=== PATIENT | male | born 1945 | race Caucasian/White ===

== ENCOUNTER → 2020-12-08 11:17 | Outpatient (BNVA) | payer MEDICARE, SELFPAY | PROVIDERS: Family Provider Family Medicine; PCP Family Medicine; Visit Provider Specialist | DX: F31.9 Bipolar disorder, unspecified (principal) | CPT/HCPCS: 99213; 99215 ==

== ENCOUNTER → 2021-06-06 12:57 | Outpatient (BNVA) | payer MEDICARE, SELFPAY | PROVIDERS: Family Provider Family Medicine; PCP Family Medicine; Visit Provider Specialist | DX: F31.9 Bipolar disorder, unspecified (principal) | CPT/HCPCS: 99213 ==

== ENCOUNTER → 2022-05-31 12:37 | Outpatient (BNVA) | payer MEDICARE, MEDICAID, SELFPAY | PROVIDERS: Family Provider Family Medicine; PCP Family Medicine; Visit Provider Specialist | DX: F31.9 Bipolar disorder, unspecified (principal); I25.10 Atherosclerotic heart disease of native coronary artery without angina pectoris | CPT/HCPCS: 99213 ==

== ENCOUNTER 2023-02-28 09:18 | Outpatient (CLI) | payer MEDICARE, MEDICAID, SELFPAY ==
[2023-02-28 10:09] VITALS: BMI 25.8
--- NOTE | 2023-02-28 10:11 | ECG_ITS ---
[facility] Test Date: 2023-02-28 Pat Name: Otf Yip Department: Room: Gender: Male Client Delivery Specialist: : 1945 Requested By: Ranjana Waddell Order Number: [id number] Lynne MD: Ranjana Waddell M.D. Interpretive Statements NAME OF STUDY: LEXISCAN SESTAMIBI STRESS TEST INDICATION: Coronary Artery Disease, Exertional shortness of breath PROCEDURE: At the baseline, the blood pressure was 123/64 mm Hg with a heart rate of 53 bpm. The electrocardiogram showed sinus bradycardia, normal axis with normal ST and T's. ??? The Lexiscan was infused over a period of 20 seconds. A total of 0.4 milligrams of Lexiscan was infused. The stress phase was continued for a total of 5 minutes. Heart rate at the end of the stress phase was 62 bpm with a blood pressure of 121/64 mm Hg. The EKG at the peak infusion revealed sinus rhythm with no significant ST-T wave changes. ??? Sestamibi was injected 20 seconds after the Lexiscan infusion. ??? Blood pressure at the end of the recovery phase was 116/61 mm Hg with a heart rate of 61 beats per minute. ??? CONCLUSION: 1. Normal EKG response to LexiScan infusion. 2. No LexiScan induced chest pain or cardiac arrhythmia. 3. Normal blood pressure and heart rate response. 4. Sestamibi/sestamibi perfusion scan pending; see separate report. Electronically Signed On 03-04-2023 5:16:02 CDT by Ranjana Waddell M.D. [id number]
--- NOTE | 2023-02-28 10:11 | NMCV_ITS ---
NM vimal perf SPECT r/s* [id number] Otf Yip Age: 77 Gender: M : 1945 Exam Date: 02/28/2023 10:46 Ordering Phys: Ranjana Waddell MD ([email or web address]) Technologist: FARIHA Donaldson Exam Location: [facility] Indications: ATHEROSCLEROTIC HEART DISEASE, EXERTIONAL SHORTNESS OF BREATH STRESS TEST Please see separate stress test report in [facility] for full findings IMAGE PROTOCOL Rest/Stress 1 Lexiscan Day Radiopharmaceutical Dose (mCi) Administration Site Administered by Rest: Tc-99m 10.6 IV FARIHA Bermudez Sestamibi Stress:Tc-99m 32.4 IV FARIHA Bermudez Sestamibi Rest: 28-Feb-2023 60 Discovery 630 Stress: 28-Feb-2023 30 Discovery 630 0.4mg Lexiscan. Images obtained in supine and prone position. SPECT RESULTS Technical Quality: Excellent Raw Data Analysis: Normal Image Corrections: No attenuation or motion correction applied Summed Stress Score: 3 Summed Rest Score: 1 Summed Difference Score: 2 PERFUSION FINDINGS Small sized perfusion abnormlity of mild severity of mid to apical inferior linares on supine stress images with improved tracer uptake in prone stress images. FUNCTIONAL RESULTS (calculated via Gated SPECT) Stress Image LV EF (%): 86 Stress EDV (mL):71 TID: 0.95 Stress ESV (mL):10 FUNCTIONAL FINDINGS: The left ventricle is normal in size. Transient Ischemia Dilatation of 0.95. The left ventricular ejection fraction is normal with a value of 86%. There is hyperdynamic left ventricular wall thickening. Normal end diastolic and end systolic volumes. IMPRESSIONS 1. Small sized perfusion abnormlity of mild severity of mid to apical inferior linares with improved tracer uptake in prone stress images.This likely represents attenuation artifact. 2. Overall left ventricular systolic function is normal without regional wall motion abnormalities, LVEF=86%. 3. EKG portion of the study will be reported separately. 4. Scan indicates low risk for cardiac events. Ranjana Waddell MD (Electronically Signed) Final Date: 04 March 2023 08:36 S
[2023-02-28] MEDS: regadenoson 0.4 Mg/5 ml Syringe IVP (11:40)
[2023-02-28 11:59] VITALS: BP 117/66; PULSE 62
== END 2023-02-28 09:19 | disposition home or self-care (01) ==
PROVIDERS: PCP Family Medicine; Visit Provider Internal Medicine Cardiovascular Disease
DX: I25.10 Atherosclerotic heart disease of native coronary artery without angina pectoris (principal); R06.02 Shortness of breath
CPT/HCPCS: 36415; 78452; 93017; 96374; A9500; J2785

== ENCOUNTER → 2023-09-20 15:55 | Outpatient (BNVA) | payer MEDICARE, MEDICAID, SELFPAY | PROVIDERS: PCP Family Medicine; Visit Provider Specialist | DX: F31.78 Bipolar disorder, in full remission, most recent episode mixed (principal); I25.10 Atherosclerotic heart disease of native coronary artery without angina pectoris | CPT/HCPCS: 99213 ==

== ENCOUNTER → 2023-12-19 10:18 | Outpatient (BNVA) | payer MEDICARE, MEDICAID, SELFPAY | PROVIDERS: PCP Family Medicine; Visit Provider Nurse Practitioner Family | DX: I10 Essential (primary) hypertension (principal); I25.10 Atherosclerotic heart disease of native coronary artery without angina pectoris | CPT/HCPCS: 99214 ==

== ENCOUNTER → 2024-09-05 10:49 | Outpatient (BNVA) | payer MEDICARE, MEDICAID, SELFPAY | PROVIDERS: PCP Family Medicine; Visit Provider Specialist | DX: R29.90 Unspecified symptoms and signs involving the nervous system (principal); F31.78 Bipolar disorder, in full remission, most recent episode mixed; I25.10 Atherosclerotic heart disease of native coronary artery without angina pectoris | CPT/HCPCS: G0463 ==

== ENCOUNTER → 2024-11-06 11:42 | Outpatient (BNVA) | payer MEDICARE, MEDICAID, SELFPAY | PROVIDERS: PCP Family Medicine; Visit Provider Internal Medicine Cardiovascular Disease | DX: I25.10 Atherosclerotic heart disease of native coronary artery without angina pectoris (principal); I10 Essential (primary) hypertension; E78.5 Hyperlipidemia, unspecified; Z79.01 Long term (current) use of anticoagulants; Z79.82 Long term (current) use of aspirin; Z95.5 Presence of coronary angioplasty implant and graft | CPT/HCPCS: 99214 ==

== ENCOUNTER 2025-05-18 11:24 | Inpatient (IN) | payer MEDICARE, MEDICAID, SELFPAY ==
[2025-05-18] VITALS (8 sets, daily range): BP systolic 101–139; BP diastolic 45–68; PULSE 84–109; RESP 16–18; TEMP 36.6–37.3; O2SAT 91–97; BMI 25.1; BMI 27.1
--- NOTE | 2025-05-18 11:25 | XR_ITS ---
WS: [id number] Exam: XR chest 1V portable [id number] Date/Time of Exam: 05/18/2025 11:28 AM Reason For Exam: Weakness Comparison 12/16/2013. Lungs are clear and fully expanded. Normal cardiomediastinal silhouette. No pleural effusions. Bony structures are intact. XR/XR chest 1V portable [id number] IMPRESSION: 1. No acute cardiopulmonary finding.
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
--- NOTE | 2025-05-18 11:28 | ECG_ITS ---
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 Measurements Intervals [place] Rate: 94 P: 47 MA: 150 QRS: -5 QRSD: 85 T: 78 QT: 350 QTc: 438 Interpretive Statements SINUS RHYTHM WITH FREQUENT VENTRICULAR PREMATURE COMPLEXES LOW QRS VOLTAGE IN PRECORDIAL LEADS [QRS DEFLECTION < 1.0 mV IN CHEST LEADS] NONSPECIFIC ST & T-WAVE ABNORMALITY ABNORMAL RHYTHM ECG No previous ECG available for comparison Electronically Signed On 05-19-2025 20:03:26 BASEBALL HAND SEWER by Melanie Veronica M.D. [id number]
[2025-05-18 12:07] LABS: Hematocrit 29.1 % (37-53); Hemoglobin 9.20 g/dL (11.27-16.99); Mean Corpuscular HGB Conc 31.6 g/dL (30-55); Mean Corpuscular Hemoglobin 30.7 pg (27-33); Mean Corpuscular Volume 97.0 fl (82-101); Nucleated Red Blood Cells % 0 %; Platelet Count 397 10^3/cmm (157-399); Red Blood Count 3.00 10^6/uL (3.85-5.65); White Blood Count 27.01 10^3/uL (3.29-11.43)
--- OUTSIDE RECORDS SUMMARY | 2025-05-18 12:13 | XMS_ITS | Clinical Summary ---
Author Organization [facility] Address [address] [address] Phone Care Team Providers Care Editor Farm Journal Name Role Phone Unavailable Primary Care Provider Unavailabl e Social History Tobacco Use Types Packs/Day Years Used Date Smoking Tobacco: Never Assessed Sex and Gender Information Value Date Recorded Sex Assigned at Not on file Legal Sex Male 5:55 AM CDT Gender Identity Not on file Sexual Orientation Not on file Last Filed Vital Signs Vital Sign Reading Time Taken Comments Blood Pressure 129/74 01/18/2025 6:05 AM CDT Pulse 101 01/18/2025 6:05 AM CDT Temperature 36.8 C (98.3 F) 01/18/2025 6:05 AM CDT Respiratory Rate 19 01/18/2025 6:05 AM CDT Oxygen Saturation 95% 01/18/2025 6:06 AM CDT Inhaled Oxygen Concentration - - Weight - - Height - - Body Mass Index - - Plan of Treatment Health Maintenance Due Date Last Done Comments Creatinine Level 1945 Lipid Panel 1945 Potassium Level 1945 MMR Vaccines (1 of 1 - Standard series) 1945 DTaP,Tdap,and Td Vaccines (1 - Tdap) 12/03/1951 Varicella Vaccines (1 of 2 - 13+ 2-dose series) 1957 Depression Screening 1962 Social Drivers of Health (SDoH) 1962 Pneumococcal Vaccines: 50+ Years (1 of 1 - PCV) 1994 Zoster Vaccines (1 of 2) 1994 Complete Fall Risk Assessment 2009 Medicare Initial AWV G0438 11/16/2010 RSV Vaccines (1 - 1-dose 75+ series) 12/03/2019 COVID-19 Vaccine (1 - 2023-2 5 season) 2025 Influenza Vaccine (#1) 2025 , 04/25/2023 HIB Vaccines Aged Out No longer eligi ble based on patient's age to complete this topic HPV Vaccines Aged Out No longer eligi ble based on patient's age to complete this topic Hepatitis A Vaccines Aged Out No long er eligible based on patient's age to complete this topic Hepatitis B Vaccines Aged Out No long er eligible based on patient's age to complete this topic IPV Vaccines Aged Out No longer eligi ble based on patient's age to complete this topic Meningococcal B Vaccine Aged Out No l onger eligible based on patient's age to complete this topic Meningococcal Vaccine Aged Out No uli rodolfo eligible based on patient's age to complete this topic Rotavirus Vaccines Aged Out No longer eligible based on patient's age to complete this topic Insurance [facility] MEDICARE [facility] MEDICARE ADVANTAGE
--- OUTSIDE RECORDS SUMMARY | 2025-05-18 12:13 | XMS_ITS | Encounter Summary ---
Author Organization [facility] Address [address] [place] [address] Care Team Providers Care Sports Recruiter Name Role Phone Gino Wilson MD Primary Care Provider [phone] Encounter Details Date Type Department Care Team (Latest Contact Info) Description 09/07/1998 Outpatient Historical [facility] Sushil Hollis MD NO ADDRESS ON FILE Observation for unspecified suspected condition (Primary Dx) Social History Tobacco Use Types Packs/Day Years Used Date Smoking Tobacco: Never Assessed Sex and Gender Information Value Date Recorded Sex Assigned at Not on file 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
--- OUTSIDE RECORDS SUMMARY | 2025-05-18 12:14 | XMS_ITS | Clinical Summary ---
Author Organization [facility] Address [address] [place] [address] Care Team Providers Care Field Service Consultant Name Role Phone Gino Wilson MD Primary Care Provider [phone] Allergies No known active allergies Medications clopidogrel (PLAVIX) 75 mg Oral Tab Take 75 mg by mouth daily. Active simvastatin (ZOCOR) 20 mg Oral tablet Take 20 mg by mouth Daily LATE. Active aspirin (HARI) 81 mg Oral Tab Take by mouth. Active metoprolol tartrate (LOPRESSOR) 25 mg Oral tablet Take 25 mg by mouth daily. Active amLODIPine (NORVASC) 5 mg Oral tabletIndications:O ther and unspecified angina pectoris,Coronary atherosclerosis of unspecified type of vessel, creek or graft Take 1 Tab by mouth daily. 30 Tab 11 3 Active tadalafiL (CIALIS) 20 mg tabletIndications:E rectile dysfunction due to arterial insufficiency Take 0.5-1 Tablets (10-20 mg) by mouth 1 time daily as needed for Erectile Dysfunction. 50 Tablet 1 1 Active OLANZapine (ZyPREXA) 5 mg tablet TAKE 1 TABLET BY MOUTH DAILY AT BEDTIME 90 Tablet 3 1 Active ALPRAZolam (XANAX) 0.25 mg tabletIndications:G eneralized anxiety disorder TAKE 1 TABLET BY MOUTH TWICE DAILY NEEDED FOR ANXIETY 180 Tablet 1 1 Active Active Problems Problem Noted Date Diagnosed Date Erectile dysfunction due to arterial insufficien cy 06/12/2020 History of coronary artery stent placement 06/12 Overweight (BMI 25.0-29.9) 06/12/2020 Essential hypertension 06/04/2020 Mixed hyperlipidemia 06/04/2020 CAD (coronary artery disease) 10/17/2012 Resolved Problems Problem Noted Date Diagnosed Date Resolved Date Exertional angina 10/17/2012 06/04/2020 Social History Tobacco Use Types Packs/Day Years Used Date Smoking Tobacco: Former Cigarettes Smokeless Tobacco: Never Alcohol Use Standard Drinks/Week Comments Never 0 (1 standard drink = 0.6 oz pur e alcohol) Sex and Gender Information Value Date Recorded Sex Assigned at Not on file 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 Gender Identity Not on file Sexual Orientation Not on file Last Filed Vital Signs Vital Sign Reading Time Taken Comments Blood Pressure 132/80 12/07/2020 4:30 PM CDT Pulse 92 12/07/2020 4:30 PM CDT Temperature 37.5 C (99.5 F) 12/07/2020 4:30 PM CDT Respiratory Rate 16 12/07/2020 4:30 PM CDT Oxygen Saturation 95% 12/07/2020 4:30 PM CDT Inhaled Oxygen Concentration - - Weight 88.7 kg (195 lb 9.6 oz) 12/07/2020 4:30 P M CDT Height 177.8 cm (5' 10 ) 12/07/2020 4:30 PM CDT Body Mass Index 28.07 12/07/2020 4:30 PM CDT Plan of Treatment Health Maintenance Due Date Last Done Comments DTAP/TDAP/TD VACCINES (1 - Tdap) 12/03/1963 PNEUMOCOCCAL VACCINE 50+ YEARS (1 of 1 - PCV) 12/02/18 95 ZOSTER VACCINE (1 of 2) 1994 RSV VACCINE (60+ or ) (1 - 1-dose 75+ series) 12/03/2019 Medicare [place]vant[place] ([place]) Prev entative Visit/Annual Wellness Visit 06/18/2024 12/03/2020 INFLUENZA VACCINE (#1) 2025 06/04/2020 Colorectal Cancer Screening Discontinued FIT/FOBT Q 1 year Discontinued 06/05/2020 COLORECTAL SCREENING Discontinued FIT-DNA Q 3 years Discontinued Flex Sig/CT Colonography Q 5 years Discontinued Procedures Procedure Name Priority Date/Time Associated Diagnosis Comments OCCULT BLOOD IMMUNOASSAY, COLORECTAL SCREEN Routine 06/05/2020 12:00 PM ATTORNEY LAWYER Screening for colon cancer from Last 3 Months or Most Recently Relevant to Health Maintenance Results * OCCULT BLOOD IMMUNOASSAY, COLORECTAL SCREEN (06/05/2020 12:00 PM ATTORNEY LAWYER) OCCULT BLOOD, STOOL Negative Negative 06/12/2020 8:41 AM ATTORNEY LAWYER [facility] Stool STOOL SPECIMEN / Unknown Collection / Unknown 06/05/2020 12:00 PM ATTORNEY LAWYER 06/11/2020 1:06 PM ATTORNEY LAWYER Gino Wilson MD BODY FLUIDS AND STOOLS Final Re sult [facility] CLIA# [id number] [place] [address] from Last 3 Months or Most Recently Relevant to Health Maintenance Insurance MEDICAID [place] [employer] [facility] H[facility] Care Teams Field Service Consultant Relationship Specialty Start Date End Date Gino Wilson MD [address] [place] [id number] PCP - General Family Practice 06/04/20
--- OUTSIDE RECORDS SUMMARY | 2025-05-18 12:14 | XMS_ITS | Clinical Summary ---
Author Organization [facility] Address [address] [place] [address] Care Team Providers Care Speech Correction Consultant Name Role Phone Gal Wilson DO Primary Care Provider [phone] Allergies No known active allergies Medications OLANZapine (ZyPREXA) 5 mg tablet TAKE 1 TABLET BY MOUTH DAILY AT BEDTIME 90 Tablet 3 12/03/2020 Active ALPRAZolam (XANAX) 0.25 mg tabletIndicatio ns:Generalized anxiety disorder TAKE 1 TABLET BY MOUTH TWICE DAILY NEEDED FOR ANXIETY 180 Tablet 1 12/03/2020 Active nitroglycerin (NITROSTAT) 0.4 mg Tablet, Sublingual Place 1 Tablet (0.4 mg) under tongue every 5 minutes as needed for Chest Pain. 100 Tablet 2 12/29/2020 Active aspirin (ECOTRIN EC) 81 mg Tablet, Delayed Release (E.C.) Take by mouth. Active simvastatin (ZOCOR) 20 mg tablet Take 20 mg by mouth. Active metoprolol tartrate (LOPRESSOR) 25 mg tablet Take 50 mg by mouth daily. Active clopidogreL (PLAVIX) 75 mg Tablet Take 75 mg by mouth daily. Active amLODIPine (NORVASC) 5 mg tablet 5 mg daily. 04/08/2021 Active sildenafiL, pulm.hypertensi on, (REVATIO) 20 mg Tablet TAKE 1 TABLET BY MOUTH DAILY 90 Tablet 06/22/2022 Active tiZANidine (ZANAFLEX) 2 mg Tablet Take 1 Tablet (2 mg) by mouth every 8 hours as needed for Spasm. 15 Tablet 05/06/2023 Active Active Problems Problem Noted Date Diagnosed Date Erectile dysfunction due to arterial insufficien cy 06/12/2020 Overweight (BMI 25.0-29.9) 06/12/2020 History of coronary artery stent placement 06/12 Mixed hyperlipidemia 06/04/2020 Essential hypertension 06/04/2020 CAD (coronary artery disease) 10/17/2012 Resolved Problems Problem Noted Date Diagnosed Date Resolved Date Exertional angina 10/17/2012 06/04/2020 Encounters Date Type Department Care Team Description 03/03/2025 External Device Data [facility] ABSTRACTION Provider, Abstract 02/17/2025 External Device Data [facility] ABSTRACTION Provider, Abstract from Last 3 Months Immunizations Immunization Administration Dates Next Due (Return Path) COVID-19 VACCINE - EMERGENCY USE AUTHORIZATION, AD26,COV2S(PF) 0.5 ML IM SUSP 05/10/2021,10/28/2020 INFLUENZA VACCINE HIGH DOSE QUADRIVALENT 65 YR UP PF IM 03/05/2024,04/25/2023 Social History Tobacco Use Types Packs/Day Years Used Date Smoking Tobacco: Former Cigarettes Smokeless Tobacco: Never Tobacco Cessation:Counseling Given: No Alcohol Use Standard Drinks/Week Comments Never 0 (1 standard drink = 0.6 oz pur e alcohol) Financial Resource Strain Answer Date R ecorded How hard is it for you to pa y for the very basics like food, housing, medical care, and heating? Not very hard 07/04/2021 Food Insecurity Answer Date Recorded In the past 12 months, have you worried that your food would run out before you had money to buy more? Never true 07/04/2021 In the past 12 months, did y ou run out of food and didn't have money to buy more? Never true 07/04/2021 Transportation Needs Answer Date Record ed In the past 12 months, has l ack of transportation kept you from medical appointments or from getting medications? No 07/04/2021 Lack of Transportation (Non-Medical) Not on file 07/04/2021 Sex and Gender Information Value Date Recorded Sex Assigned at Not on file Legal Sex Male 12:22 AM REGISTERED RADIATION THERAPIST Gender Identity Not on file Sexual Orientation Not on file Last Filed Vital Signs Vital Sign Reading Time Taken Comments Blood Pressure 104/62 07/04/2021 10:04 AM REGISTERED RADIATION THERAPIST Pulse 69 07/04/2021 10:04 AM REGISTERED RADIATION THERAPIST Temperature 37.1 C (98.7 F) 07/04/2021 10:04 AM REGISTERED RADIATION THERAPIST Respiratory Rate 16 07/04/2021 10:04 AM REGISTERED RADIATION THERAPIST Oxygen Saturation 97% 07/04/2021 10:04 AM REGISTERED RADIATION THERAPIST Inhaled Oxygen Concentration - - Weight 87.7 kg (193 lb 6.4 oz) 07/04/2021 10:04 AM REGISTERED RADIATION THERAPIST Height 177.8 cm (5' 10 ) 07/04/2021 10:04 AM REGISTERED RADIATION THERAPIST Body Mass Index 27.75 07/04/2021 10:04 AM REGISTERED RADIATION THERAPIST Plan of Treatment Health Maintenance Due Date Last Done Comments DTAP/TDAP/TD VACCINES (1 - Tdap) 12/03/1963 PNEUMOCOCCAL VACCINE 50+ YEA RS (1 of 1 - PCV) 1994 ZOSTER VACCINE (1 of 2) 1994 RSV VACCINE (60+ or ) (1 - 1-dose 75+ series) 12/03/2019 Medicare Advantage ([place]) Preventative Visit/Annual Wellness Visit 06/18/2024 07/04/2021, 12/03/2020 INFLUENZA VACCINE (#1) 2025 , 04/25/2023, 06/04/2020 COVID-19 Vaccine (6 - 2024-2 6 season) 2025 03/05/2024, 02/14/2023, 05/18/2022, Additional history exists Colorectal Cancer Screening Discontinued FIT/FOBT Q 1 year Discontinued 06/05/2020 COLORECTAL SCREENING Discontinued FIT-DNA Q 3 years Discontinued Flex Sig/CT Colonography Q 5 years Discontinued Procedures Procedure Name Priority Date/Time Associated Diagnosis Comments OCCULT BLOOD IMMUNOASSAY, COLORECTAL SCREEN Routine 06/05/2020 12:00 PM REGISTERED RADIATION THERAPIST from Last 3 Months or Most Recently Relevant to Health Maintenance Results * OCCULT BLOOD IMMUNOASSAY, COLORECTAL SCREEN (06/05/2020 12:00 PM REGISTERED RADIATION THERAPIST) OCCULT BLOOD, STOOL Negative Negative 06/12/2020 8:41 AM REGISTERED RADIATION THERAPIST [facility] Stool STOOL SPECIMEN / Unknown Collection / Unknown 06/05/2020 12:00 PM REGISTERED RADIATION THERAPIST 06/11/2020 1:06 PM REGISTERED RADIATION THERAPIST us Gino Wilson MD BODY FLUIDS AND STOOLS Final Re sult [facility]# [id number] [place] [address] from Last 3 Months or Most Recently Relevant to Health Maintenance Insurance ANTH D[employer] ADVANTAGE HMO DSNP MEDICAID [place] Care Teams Speech Correction Consultant Relationship Specialty Start Date End Date Gal Wilson DO [address] [place] [address] PCP - General Family Practice 05/25/21
[2025-05-18 12:34] LABS: Troponin(5th) Baseline 28 ng/L (0-15)
[2025-05-18 12:38] LABS: Lactic Sepsis W/Reflex 6.7 mmol/L (0.5-2.2)
[2025-05-18 12:45] LABS: Respiratory Syncytial Virus Ce NEGATIVE (Negative); SARS-CoV-2 PCR NEGATIVE (Negative)
[2025-05-18 12:58] LABS: Alanine Aminotransferase 21 U/L (0-41); Albumin Level 3.7 g/dL (3.5-5.2); Alkaline Phosphatase 76 U/L (40-130); Anion Gap 21.3 (5-19); Aspartate Amino Transferase 24 U/L (0-40); Blood Urea Nitrogen 49 mg/dL (8-23); Calcium 8.6 mg/dL (8.5-10.5); Carbon Dioxide 19 mmol/L (22-29); Chloride 107 mmol/L (98-107); Globulin 2.0 g/dL (1.3-4.6); Glucose 112 mg/dL (65-115); Osmolality Calculated 310 mOsm/kg (285-295); Potassium 4.3 mmol/L (3.5-5.1); Sodium 143 mmol/L (136-145); Total Protein 5.7 g/dL (6.6-8.7)
[2025-05-18] MEDS: linezolid premix 600 MG/300 ML PREMIX 300 MG IV ×2 (13:07→23:43)
[2025-05-18 13:22] LABS: Glucose Urine UA Negative (Normal); Nitrate Urine Negative (Negative); Specific Gravity, Urine 1.022 (1.005-1.030)
[2025-05-18 13:27] LABS: Universal Test for UA Present (0)
[2025-05-18 13:44] LABS: UA Slide Review UA Slide Review Perf
[2025-05-18 13:50] LABS: Reflex Lactate Order REFLEX LACTIC ORDERD
--- NOTE | 2025-05-18 14:27 | CT_ITS ---
WS: [id number] CT CHEST, ABDOMEN, AND PELVIS TECHNIQUE: Noncontrast CT of the chest, abdomen, and pelvis with coronal and sagittal reformatted images. CLINICAL INFORMATION: sepsis. COMPARISON: None. DLP: 1097.[address] scans at [facility] use at least one of these dose optimization techniques: automated exposure control; mA and/or kV adjustment per patient size (includes targeted exams where dose is matched to clinical indication); or iterative reconstruction. CT CHEST: Lungs are well aerated. No acute pulmonary infiltrates. Slight subsegmental atelectasis in the lung bases. Mild thoracic curve. Mild thoracic kyphosis. Aortic calcification. Normal caliber thoracic aorta. Coronary calcification. Moderate esophageal hiatal hernia. No mediastinal or hilar lymphadenopathy. No axillary lymphadenopathy. CT ABDOMEN AND PELVIS: Noncontrast liver and spleen are normal in appearance. Normal noncontrast gallbladder. Moderate esophageal hernia. Noncontrast pancreas appears normal. Adrenal glands are normal. No hydronephrosis. RIGHT renal cyst measures 4.8 x 5.9 cm. LEFT dorsal bladder diverticulum measuring 2.8 x 2.2 cm Rectosigmoid constipation. Sigmoid diverticulosis. Mild thickening of the sigmoid colon with slight surrounding induration suspicious for mild acute diverticulitis. No drainable abscess or fluid collection. CT/[place] [id number] IMPRESSION: 1. No acute chest findings. 2. Slight thickening and induration about the sigmoid colon compatible with mi ld acute diverticulitis. No drainable abscess or fluid collection. 3. LEFT dorsal bladder diverticula measuring 2.2 x 2.8 cm 4. No other acute findings in the abdomen or pelvis.
[2025-05-18 14:31] LABS: Troponin 5 2HR 28.47 ng/L (0-15); Troponin 5 2HR Delta 0.47 ABS# (0-10)
[2025-05-18] MEDS: pantoprazole 40 mg SDV 80 MG IVP (15:17)
[2025-05-18] MEDS: ondansetron 2 mg/ML SDV 2 mL 4 MG IVP (15:18)
--- NOTE | 2025-05-18 15:42 | P.HP_ITS ---
Documented by User: Lynne Mitchell NP 05/18/25 18:44 Providers/Chief Complaint 2 Admitting Physician: Tiffanie Young MD Primary Care Provider: Gal Wilson DO Chief Complaint: weakness History of Present Illness Otf Yip is a 79 year old male w/ pmhx CAD (s/p multiple stent placement to LAD and circumflex 12/2013), on chronic anticoagulation- plavix, HTN, hyperlipidemia, and Bipolar disorder. Patient presents emergency department via EMS w/ c/o increased weakness. Patient resting in bed on room air, denies pain. He presented to the ED today due to increased weakness with associated s/s SOB, acid reflux-like symptoms, dark stool, dark emesis. Patient states, Well I ate a lot of chocolate and I think that is why the stool looked dark. Patient denies nausea, fever, palpitations, changes in urinary and bowel habits and any recent medication changes. Patient reports that he takes 5-6 ibuprofen every night before bed. Patient will be admitted to hospitalist services with general surgery consult for possible EGD for further medical management. While in the ED a CBC, CMP, troponins, lactic acid, CRP was collected, reviewed and resulted as follows: WBC 27.01, Neut 23.36, [place] 1.3, Hgb 9.20, HCT 29.1, RBC 3.00. Na 143, K 4.3, Licensed Home Inspector 1.3, BUN 49, Anion Gap 21.3. Baseline troponin 28, 2-hour troponin 28.47, delta troponin 0.47. Lactic acid 6.7, CRP 6.5. UA was obtained-negative for UTI. Flu/RSV/COVID swab collected-negative. Patient received following medications while in ED: 2.5 NS bolus, meropenem 500 mg IVP, Zyvox 600 mg IV, Protonix 80 mg IVP, Zofran 4 mg Review of Systems 2 General: Reports: 10 or more systems reviewed and unremarkable except in HPI and below Medications/Allergies Home Medications ?Medication ?Instructions ?Recorded ?Confirmed ?Last Taken ?Type aspirin 81 mg tablet,delayed 81 mg PO DAILY 11/23/22 1 07/19/24 05/17/25 History release (Adult Low Dose Aspirin) coenzyme Q10 100 mg capsule (Co 100 mg PO DAILY 05/18/25 Unknown History Q-10) alprazolam 0.25 mg tablet 0.5 mg (2 x 0.25 mg) PO SPARKLE Y 90 04/03/24 05/18/25 Unknown Rx days #180 tabs amlodipine 5 mg tablet See Rx Instructions .Route 0 12/29/24 05/18/25 05/17/25 Rx .COMPLEX #100 tabs clopidogrel 75 mg tablet 75 mg PO DAILY #90 tabs 12/1605/18/25 05/17/25 Rx metoprolol tartrate 25 mg tablet 25 mg PO BID #200 tab s 12/29/24 05/18/25 05/17/25 08:00 Rx simvastatin 20 mg tablet 20 mg PO DAILY #90 tabs 12/1605/18/25 05/17/25 09:00 Rx mljbtvit-sm-umawx 300 mcg-K 60 1 tab PO DAILY 05/18/25 05/18/25 05/17/25 History mcg-lycop 600 mcg-lutein 300 mcg tablet (Centrum Silver Men) Allergies Allergy/AdvReac Type Severity Reaction Status Date / Time No Known Allergies Allergy Verified 11/06/24 13:36 PFSH Acute 2 PFSH: Medical History Coronary artery disease HTN (hypertension) Hyperlipidemia Surgical History Hx of hernia repair History of coronary artery stent placement 2010 Family History Family/Other Cancer Aunt Denies family history of Diabetes CAD (coronary artery disease) Stroke Social History Smoking and tobacco/nicotine status: never used tobacco/nicotine Alcohol intake: never Substance/Drug Use: never Vitals/I&O/Wt Last Vital Signs Temp 97.9 F 05/18/25 11:31 Pulse 97 05/18/25 12:45 Resp 16 05/18/25 12:45 BP 139/68 05/18/25 12:45 Pulse Ox 94 05/18/25 12:45 O2 Del Method Room Air 05/18/25 12:45 05/18/25 05/18/25 05/18/25 06:59 14:59 22:59 Intake Total 2300 / 2300 Balance 2300 / 2300 Weight last 48 hrs Weight 81.647 kg Physical Exam 2 Narrative: General: A&Ox4 , lying supine on RA, denies pain. HEENT: Normo-cephalic, atraumatic, grossly unremarkable exam Cardio: NSR, normal S1-S2 w/o any murmurs, rubs, or gallops and JVD normal Respiratory: Clear breath sounds on auscultation w/o any wheezes, stridor, rhonchi GI: Abd soft, non-tender, non-distended, normo-active bowel sounds present. Neuro: Moves all extremities, no sensory deficits, Normal speech Behavior: Appropriate and cooperative Extremities: Adequate palpable pulses. No clubbing, cyanosis or edema, Full ROM Quick SOFA Score: Respiratory Rate: 18 Blood Pressure: 128/54 Sandra Coma Scale: 15 qSOFA Score: 0 If qSOFA score 2 or greater, continue: Blood Pressure Mean: 78 Bilirubin (mg/dl): 0.2 Platelets (x10?/ml): 397 Creatinine (mg/dl): 1.3 Evaluation: Current stage of sepsis: sepsis Sepsis stage criteria used: [facility] Sep-1 and Sepsis-3 Blood cultures ordered: Yes Focused Exam: Vital signs: Temp Pulse Resp BP Pulse Ox O2 Del Method 05/18/25 16:41 96 16 115/45 92 05/18/25 16:09 17 108/46 93 05/18/25 15:48 103 H 18 121/57 91 Room Air 05/18/25 12:45 97 16 139/68 94 Room Air 05/18/25 11:31 97.9 F 98 18 101/53 97 Room Air Capillary refill: < 3 Seconds Peripheral pulse strength: 3+ Normal P eripheral pulse location: Radial Skin exam: pallor not present and no mottling Date exam was performed: 05/18/25 Time exam was performed: 18:37 2 Sepsis Screen No Definite Risk 05/18/25, 16:09 Respiratory Rate, (12 - 18) 17 breaths/min Today, 08:20 Blood Pressure 125/61 mmHg Today, 08:20 [place] Coma Scale Score 15 Today, 07:58 Quick SOFA Score 0 12/01/25, 18:35 SOFA Score: 2 Sandra Coma Scale Score 15 Today, 07:58 Blood Pressure Mean 82 mmHg Today, 08:20 Total Bilirubin, (0.15-1.2) 0.2 mg/dL 05/18/25, 13 :54 Platelet Count, (157-399) 222 10^3/cmm Δ Today, 05:36 Creatinine, (0.7-1.2) 1.0 mg/dL Today, 05:36 Data 05/19/25 05:36 05/19/25 05:36 Other Labs: 05/18: Chest/Abd/Pelvis CT: Reviewed and results as follows: No acute chest findings. Slight thickening and induration about the sigmoid colon compatible with mild acute diverticulitis. No drainable abscess or fluid collection. LEFT dorsal bladder diverticula measuring 2.2 x 2.8 cm. No other acute findings in the abdomen or pelvis. 05/18: CXR: Reviewed and results as follows: No acute cardiopulmonary finding. 05/18: EKG: NSR, no st changes. QRS 85, QTc 438. HR 94 Micro: Microbiology 05/18/25 11:55 Blood Culture - Preliminary Blood SPECIMEN COLLECTED 05/18/25 11:50 Blood Culture - Preliminary Blood SPECIMEN COLLECTED A&P Assessment and plan 1. Diverticulitis: 2. GI bleed: 3. Sepsis: 4. Anemia: 5. Leukocytosis: 6. Prerenal acute renal failure: 7. Dehydration: 8. Hyperlipidemia: 9. HTN (hypertension): 10. Bipolar disorder: Plan: Sepsis/Diverticulitis Sepsis resolved/improving secondary to mild acute sigmoid diverticulitis. ?05/18: Chest/Abd/Pelvis CT: Reviewed and results as follows: Slight thickening and induration about the sigmoid colon compatible with mild acute diverticulitis . No drainable abscess or fluid collection. LEFT dorsal bladder diverticula measuring 2.2 x 2.8 cm. ? Continue IV abx meropenem 1gm IV q8hr ? IVF LR at 100ml/hr ? Trend lactate q6h until normalized; CBC, CMP dly ? Blood cultures collected, pending. ? NPO or clear liquids, advance diet as tolerated once improved. ? Analgesics and antiemetics ordered as needed Suspected upper GI Bleed/Anemia, normocytic Reports of dark stool 5 days ago and recent episode of dark emesis ? Hgb: 9.20 , Hct: 29.01 , Plt: 397 ? PT, APTT, INR ordered, pending. ? Ca: 8.6 , K: 4.3, Mag ordered, pending. ? Dr. Richardson consulted from possible EGD r/o actute GI bleed. ? NPO, strict I/Os, monitor for hemodynamic stability (orthostatics) ? Fall precautions, early ambulation w/ assist. ? Continuous cardiac monitoring ? Hold ASA/Plavix. Avoid NSAIDs ? Monitor H/H, transfuse as indicated to keep Hgb >7 or if active bleeding. ? CBC, Coags, CMP dly. Follow Lactate. Type and screen/crossmatch. Fecal occult stool ordered, pending ? IVF LR 100ml/hr ? Zofran 4 mg IVP Q6h PRN ? Protonix IVP 40 mg BID DOLLY(pre-renal)/dehydration Likely secondary to suspected GI bleed, elevated BUN; no overt bleeding noted yet. ? Continue IVF as per above ? Avoid nephrotoxins ? CMP daily CAD, s/p LAD &circumflex stents (2013) Hyperlipidemia ? Hold Plavix/ASA as per above, monitor GI bleed. ? Continue home medication simvastatin 20 mg PO dly, hold if LFTs abnormal. HTN ?Continue home medication metoprolol 25 mg PO BID ?Continue home medication amlodipine 5 mg PO Bipolar disorder ?Continue home medication alprazolam 0.25mg PO dly, and Olanzapine 5 mg PO CODE STATUS: Full code GI prophylaxis: Protonix IVP 40mg BID VTE prophylaxis: SCDs PDMP PDMP Reviewed: Not Reviewed Attestations 2 Medical Necessity Statement*: Admit to impatient as patient will need greater than 2 midnight stay for IV antibiotics, fluid resuscitation, and monitoring for possible GI bleed and sepsis resolution. Coding Level of Care Code 21569 Diagnoses Prerenal acute renal failure N17.9 Dehydration E86.0 Diverticulitis K57.92 Hyperlipidemia E78.5 HTN (hypertension) I10 Leukocytosis D72.829 Anemia D64.9 Bipolar disorder F31.9 Sepsis A41.9 GI bleed K92.2 Time Spent (min) 70 Documented by User: RONIT Malik CHARGE POSTER 05/19/25 09:14 Providers/Chief Complaint 2 Chief Complaint: weakness Medications/Allergies Home Medications ?Medication ?Instructions ?Recorded ?Confirmed ?Last Taken ?Type aspirin 81 mg tablet,delayed 81 mg PO DAILY 11/23/22 1 07/19/24 05/17/25 History release (Adult Low Dose Aspirin) coenzyme Q10 100 mg capsule (Co 100 mg PO DAILY 05/18/25 Unknown History Q-10) alprazolam 0.25 mg tablet 0.5 mg (2 x 0.25 mg) PO SPARKLE Y 90 04/03/24 05/18/25 Unknown Rx days #180 tabs amlodipine 5 mg tablet See Rx Instructions .Route 0 12/29/24 05/18/25 05/17/25 Rx .COMPLEX #100 tabs clopidogrel 75 mg tablet 75 mg PO DAILY #90 tabs 12/1605/18/25 05/17/25 Rx metoprolol tartrate 25 mg tablet 25 mg PO BID #200 tab s 12/29/24 05/18/25 05/17/25 08:00 Rx simvastatin 20 mg tablet 20 mg PO DAILY #90 tabs 12/1605/18/25 05/17/25 09:00 Rx dslizsoo-mq-hurgy 300 mcg-K 60 1 tab PO DAILY 05/18/25 05/18/25 05/17/25 History mcg-lycop 600 mcg-lutein 300 mcg tablet (Centrum Silver Men) Allergies Allergy/AdvReac Type Severity Reaction Status Date / Time No Known Allergies Allergy Verified 11/06/24 13:36 PFSH Acute 2 PFSH: Medical History Coronary artery disease HTN (hypertension) Hyperlipidemia Surgical History Hx of hernia repair History of coronary artery stent placement 2010 Family History Family/Other Cancer Aunt Denies family history of Diabetes CAD (coronary artery disease) Stroke Social History Smoking and tobacco/nicotine status: never used tobacco/nicotine Alcohol intake: never Substance/Drug Use: never Physical Exam 2 Quick SOFA Score: Respiratory Rate: 17 Blood Pressure: 125/61 [place] Coma Scale: 15 qSOFA Score: 0 If qSOFA score 2 or greater, continue: Blood Pressure Mean: 82 Bilirubin (mg/dl): 0.2 Platelets (x10?/ml): 222 Creatinine (mg/dl): 1.0 Evaluation: Sepsis stage criteria used: [facility] Sep-1 and Sepsis-3 Focused Exam: Date exam was performed: 05/19/25 Time exam was performed: 0 9:13 2 Sepsis Screen No Definite Risk 05/18/25, 16:09 Respiratory Rate, (12 - 18) 17 breaths/min Today, 08:20 Blood Pressure 125/61 mmHg Today, 08:20 [place] Coma Scale Score 15 Today, 07:58 Quick SOFA Score 0 05/18/25, 18:35 SOFA Score: 2 [place] Coma Scale Score 15 Today, 07:58 Blood Pressure Mean 82 mmHg Today, 08:20 Total Bilirubin, (0.15-1.2) 0.2 mg/dL 05/18/25, 13 :54 Platelet Count, (157-399) 222 10^3/cmm Δ Today, 05:36 Creatinine, (0.7-1.2) 1.0 mg/dL Today, 05:36 Data 05/19/25 05:36 05/19/25 05:36 A&P Assessment and plan 1. Diverticulitis: 2. GI bleed: 3. Sepsis: 4. Anemia: 5. Leukocytosis: 6. Prerenal acute renal failure: 7. Dehydration: 8. Hyperlipidemia: 9. HTN (hypertension): 10. Bipolar disorder: PDMP PDMP Reviewed: Not Reviewed Diagnoses Prerenal acute renal failure N17.9 Dehydration E86.0 Diverticulitis K57.92 Hyperlipidemia E78.5 HTN (hypertension) I10 Leukocytosis D72.829 Anemia D64.9 Bipolar disorder F31.9 Sepsis A41.9 GI bleed K92.2 Time Spent (min) 70
[2025-05-18 15:56] LABS: Lactic Acid level (Lactate) 4.1 mmol/L (0.5-2.2)
[2025-05-18] MEDS: lactobacillus 1 Tablet 1 TAB PO (17:13)
--- NOTE | 2025-05-18 17:26 | ECG_ITS ---
[facility] Test Date: 2025-05-18 Pat Name: Otf Yip Department: Room: 264 Gender: Male Audio Visual Collections Coordinator: : 1945 Requested By: Elsa Botello Order Number: [id number] Lynne MD: Melanie Veronica M.D. Measurements Intervals [place] Rate: 93 P: 29 OR: 171 QRS: -22 QRSD: 77 T: 70 QT: 360 QTc: 448 Interpretive Statements SINUS RHYTHM BORDERLINE LEFT AXIS DEVIATION [QRS AXIS < -20] POSSIBLE RIGHT VENTRICULAR CONDUCTION DELAY [RSR (QR) IN V1/V2] NONSPECIFIC T-WAVE ABNORMALITY Compared to ECG 05/18/2025 11:28:33 Ventricular premature complex(es) no longer present T-wave abnormality still present Electronically Signed On 05-19-2025 20:53:51 SENIOR ELECTRONICS DESIGN ENGINEER by Melanie Veronica M.D. [email or web address]
[2025-05-18 17:31] LABS: Alanine Aminotransferase 18 U/L (0-41); Albumin Level 3.2 g/dL (3.5-5.2); Alkaline Phosphatase 63 U/L (40-130); Aspartate Amino Transferase 23 U/L (0-40); Globulin 1.9 g/dL (1.3-4.6); Total Protein 5.1 g/dL (6.6-8.7)
[2025-05-18 17:32] LABS: Magnesium 2.0 mg/dL (1.7-2.3)
[2025-05-18 18:07] LABS: Estmated Average Glucose 97; Hemoglobin A1C 5.0 % (4.0-6.0)
[2025-05-18 18:17] LABS: Troponin 5 6HR 29.96 ng/L (0-15); Troponin 5 6HR Delta 1.96 ng/L (0-12)
[2025-05-18 18:33] LABS: Lactic Sepsis W/Reflex 1.7 mmol/L (0.5-2.2)
[2025-05-18] MEDS: meropenem 1,000 mg SDV 1000 MG IVP (21:16)
[2025-05-19] VITALS (20 sets, daily range): BP systolic 100–135; BP diastolic 45–76; PULSE 71–85; RESP 15–94; TEMP 36.6–37.7; O2SAT 92–99; BMI 28.5
[2025-05-19] MEDS: sennosides-docusate Tablet 2 TAB PO ×2 (04:20→16:07)
[2025-05-19] MEDS: lactobacillus 1 Tablet 1 TAB PO ×2 (04:20→16:07)
[2025-05-19 05:47] LABS: Mean Corpuscular HGB Conc 30.3 g/dL (30-55); Mean Corpuscular Hemoglobin 30.5 pg (27-33); Mean Corpuscular Volume 100.5 fl (82-101); Nucleated Red Blood Cells % 0 %; Platelet Count 222 10^3/cmm (157-399); Red Blood Count 2.00 10^6/uL (3.85-5.65); White Blood Count 13.55 10^3/uL (3.29-11.43)
[2025-05-19 05:55] LABS: Hematocrit 20.1 % (37-53); Hemoglobin 6.10 g/dL (11.27-16.99)
[2025-05-19 06:08] LABS: Anion Gap 14.9 (5-19); Blood Urea Nitrogen 29 mg/dL (8-23); Calcium 7.2 mg/dL (8.5-10.5); Carbon Dioxide 20 mmol/L (22-29); Chloride 112 mmol/L (98-107); Glucose 105 mg/dL (65-115); Lactic Sepsis W/Reflex 0.9 mmol/L (0.5-2.2); Osmolality Calculated 302 mOsm/kg (285-295); Potassium 3.9 mmol/L (3.5-5.1); Sodium 143 mmol/L (136-145)
[2025-05-19] MEDS: meropenem 1,000 mg SDV 1000 MG IVP (07:49)
--- NOTE | 2025-05-19 09:07 | PC.CHAP ---
Pastoral Care Encounter/Spiritual Assessment Type of Contact [] Declined differential tester visit [] Patient/Family/Request visit [] Outpatient visit [] Follow-up visit [] Physician referral [] Code/Alert [x] Routine visit [] Staff referral [] Actively dying [] Patient sleeping [] Family support [] [] Out of room [] Palliative care [] [] Receiving care in room [] Pre-surgical visit [] Trauma [] Long length of stay [] ICU visit [] Other: Relational/Emotional Strength [x] Patient feels connected with others/family/visitors/staff [] Distress [] Loneliness/isolation [] Abandonment Spirituality of Patient [x] Person of Angeli [] Attends Orthodox of their Angeli [x] Believes in Prayer [] Reads Bible or Tenriism materials [] There are Spiritual issues to be addressed Commercial Instructor Supervisor Interventions [x] Prayer [x] Active listening [] Non-anxious presence [x] Spiritual/emotional support [] Crisis/trauma care [] Spiritual counseling [] Bereavement support [] Provided bereavement packet [] Provided Bible/devotional materials [] Provided toy/stuffed animal, coloring book to patient or family member [] Provided Communion [] Anointing/[place] [] Salvation [x] Completed spiritual assessment [] Other: Impact on Illness or Injury [] Angry [] Fearful [] Anxious [] Often cries [] Exhaustion [] Unable to work [] Unable to attend sabianist [] Unable to walk/stand [] Unable to read [] Unable to drive [] Unable to eat/drink [] Unable to sleep [] Unable to be with family [] Patient intubated [] Other: Summary Time spent with patient 5 min
[2025-05-19] MEDS: linezolid premix 600 MG/300 ML PREMIX 300 MG IV (11:38)
[2025-05-19 11:49] LABS: Hematocrit 22.1 % (37-53); Hemoglobin 7.00 g/dL (11.27-16.99); Mean Corpuscular HGB Conc 31.7 g/dL (30-55); Mean Corpuscular Hemoglobin 30.0 pg (27-33); Mean Corpuscular Volume 94.8 fl (82-101); Nucleated Red Blood Cells % 0 %; Platelet Count 218 10^3/cmm (157-399); Red Blood Count 2.33 10^6/uL (3.85-5.65); White Blood Count 15.44 10^3/uL (3.29-11.43)
--- NOTE | 2025-05-19 14:37 | P.CONIM_ITS ---
Providers/Reason For Consult 2 Consulting Physician/Specialty*: General Surgery Reason for Consult*: Suspected GI bleeding Attending Physician: Alek Sow MD Primary Care Provider: Gal Wilson DO History of Present Illness History of Present Illness Otf Yip is a 79 year old male who presents to the hospital with weakness and was noted to have anemia and a CT scan shows mild diverticulitis, he also has seen some tarry stool. I was consulted for suspected upper GI bleed. Patient has been doing okay tolerating diet no significant abdominal pain. He does take antiplatelet therapy at home. Review of Systems 2 General: Reports: 10 or more systems reviewed and unremarkable except in HPI and below Medications/Allergies Home Medications ?Medication ?Instructions ?Recorded ?Confirmed ?Last Taken ?Type aspirin 81 mg tablet,delayed 81 mg PO DAILY 11/23/22 1 07/19/24 05/17/25 History release (Adult Low Dose Aspirin) coenzyme Q10 100 mg capsule (Co 100 mg PO DAILY 05/18/25 Unknown History Q-10) alprazolam 0.25 mg tablet 0.5 mg (2 x 0.25 mg) PO SPARKLE Y 90 04/03/24 05/18/25 Unknown Rx days #180 tabs amlodipine 5 mg tablet See Rx Instructions .Route 0 12/29/24 05/18/25 05/17/25 Rx .COMPLEX #100 tabs clopidogrel 75 mg tablet 75 mg PO DAILY #90 tabs 12/1605/18/25 05/17/25 Rx metoprolol tartrate 25 mg tablet 25 mg PO BID #200 tab s 12/29/24 05/18/25 05/17/25 08:00 Rx simvastatin 20 mg tablet 20 mg PO DAILY #90 tabs 12/1605/18/25 05/17/25 09:00 Rx [id number] 300 mcg-K 60 1 tab PO DAILY 05/18/25 05/18/25 05/17/25 History mcg-lycop 600 mcg-lutein 300 mcg tablet (Centrum Silver Men) Allergies Allergy/AdvReac Type Severity Reaction Status Date / Time No Known Allergies Allergy Verified 11/06/24 13:36 Current Medications Generic Name Dose Route Start Last Admin Trade Name Freq PRN Reason Stop Dose Admin Alprazolam 0.5 mg 05/18/25 21:00 05/18/25 21:16 Alprazolam 0.25 Mg Tablet PO 0.5 mg BEDTIME JAMAAL Administration Amlodipine Besylate 5 mg 05/19/25 05:00 05/19/25 04:20 Amlodipine 5 Mg Tablet PO 5 mg DAILY JAMAAL Administration Lactated Ringer's 1,000 mls @ 100 mls/hr 05/18/25 17:00 05/19/25 12:44 Lactated Ringers IV Infused .Q10H JAMAAL Infusion Lactobacillus Acidophilus 1 tab 05/18/25 17:00 05/19/25 04:20 Lactobacillus 1 Tablet PO 1 tab BID JAMAAL Administration Metoprolol Tartrate 25 mg 05/18/25 17:15 05/19/25 04:21 Metoprolol Tartrate 25 Mg Tablet PO 25 mg On Hold: 05/19/25 12:46 BID JAMAAL Administration Polyethylene Glycol 17 gm 05/19/25 05:00 05/19/25 04:26 Polyethylene Glycol 3350 Pkt 17 Gm PO Not Given DAILY JAMAAL Senna/Docusate Sodium 2 tab 05/19/25 05:00 05/19/25 04:20 Sennosides-Docusate Tablet PO 2 tab BID JAMAAL Administration PFSH Acute 2 PFSH: Medical History Coronary artery disease HTN (hypertension) Hyperlipidemia Surgical History Hx of hernia repair History of coronary artery stent placement 2010 Family History Family/Other Cancer Aunt Denies family history of Diabetes CAD (coronary artery disease) Stroke Social History Smoking and tobacco/nicotine status: never used tobacco/nicotine Alcohol intake: never Substance/Drug Use: never Vitals/I&O/Wt Last Vital Signs Temp 98 F 05/19/25 11:42 Pulse 75 05/19/25 11:42 Resp 16 05/19/25 11:42 BP 109/62 05/19/25 11:42 Pulse Ox 93 05/19/25 11:42 O2 Del Method Room Air 05/19/25 04:00 05/18/25 05/19/25 05/19/25 22:59 06:59 14:59 Intake Total 500 / 2800 1246.667 / 4046.667 2950 / 2950 Output Total 350 / 350 300 / 650 Balance 150 / 2450 946.667 / 3396.667 2950 / 2950 Weight last 48 hrs Weight 205 lb Weight 195 lb Weight 180 lb Physical Exam 2 Narrative: Abdomen is soft nontender nondistended. Data 05/19/25 11:27 05/19/25 05:36 Micro: Microbiology 05/18/25 11:55 Blood Culture - Preliminary Blood NEGATIVE TO DATE 05/18/25 11:50 Blood Culture - Preliminary Blood NEGATIVE TO DATE A&P Assessment and plan 1. GI bleed: Plan: After complete history physical examination and review of all available clinical data I have decided to offer the patient an upper endoscopy for evaluation for possible upper GI bleeding. I discussed all risk benefits of the upper endoscopy including the risk of perforation, risk of needing additional interventions, risk of injuring the soft tissue of the mouth and pharynx and patient agrees. In the case of a negative upper endoscopy patient should do a colonoscopy in the outpatient setting, his last colonoscopy about 5 years ago and was negative for pathology. Otherwise all other management per primary team is appreciated. I agree with continuing pantoprazole twice a day in the immediate future and then he may be able to reduce it to once a day. Upper endoscopy booked for tomorrow patient will be kept n.p.o. after midnight. PDMP PDMP Reviewed: Not Reviewed Coding Level of Care Code Acute Code for Chg Fwd Diagnoses GI bleed K92.2
[2025-05-19] MEDS: pantoprazole 40 mg SDV IVP (14:43)
[2025-05-19] MEDS: metroNIDAZOLE IV 500 MG/100 ML PREMIX 100 MG IV ×2 (14:46→21:50)
--- NOTE | 2025-05-19 15:50 | P.PN_ITS ---
Subjective 2 Subjective: Patient was seen in the morning, currently feeling better. His weakness is getting better PRBC transfusion completed and post PRBC CBC was 7 Another unit requested Surgery consulted and for upper endoscopy tomorrow likely, to keep patient n.p.o., Vitals/I&O/Wt Last Vital Signs Temp 98.9 F 05/19/25 15:04 Pulse 76 05/19/25 15:04 Resp 16 05/19/25 15:04 BP 121/53 05/19/25 15:04 Pulse Ox 96 05/19/25 15:04 O2 Del Method Room Air 05/19/25 04:00 05/19/25 05/19/25 05/19/25 06:59 14:59 22:59 Intake Total 1246.667 / 4046.667 2950 / 2950 0 / 2950 Output Total 300 / 650 Balance 946.667 / 3396.667 2950 / 2950 0 / 2950 Weight last 48 hrs Weight 92.986 kg Weight 88.451 kg Weight 81.647 kg Physical Exam 2 Narrative: General: Alert and oriented, lying comfortably without any distress, pallor positive HEENT: Normocephalic, atraumatic, grossly unremarkable exam Cardio: normal rate rhythm, normal S1-S2 without any murmurs, rubs, or gallops and JVD normal Respiratory: normal vascular breathing on auscultation without any wheezes, stridor, rhonchi GI: Abdomen soft, nontender, nondistended, normoactive bowel sounds present all 4 quadrants, Neuro: intact cranial nerves motor and sensory and cerebellar/coordination function without any focal neurological deficit Behavior: Appropriate and cooperative Extremities: Adequate palpable pulses, mild trace edema, pallor positive Data 05/19/25 11:27 05/19/25 05:36 Micro: Microbiology 05/18/25 11:55 Blood Culture - Preliminary Blood NEGATIVE TO DATE 05/18/25 11:50 Blood Culture - Preliminary Blood NEGATIVE TO DATE A&P Assessment and plan 1. Gastrointestinal hemorrhage associated with intestinal diverticulitis: Patient having features of diverticulitis on CT CT scan of the abdomen and pelvis Patient initially started on linezolid and meropenem by the admitting ENVIRONMENTAL SERVICES SUPERVISOR, switched to metronidazole and ciprofloxacin since the patient does not exhibit any stephany signs and symptoms of septic shock,. Patient having marked leukocytosis that could be explained secondary to dehydration versus severe anemia and stress Surgery consulted For upper endoscopy likely tomorrow, keep the patient n.p.o. CBC every 8 hourly and if the patient has ongoing severe bleeding consider CT angio abdomen/pelvis with involvement of surgery Hold anticoagulation or any blood thinners, of note patient is on aspirin and Plavix and to hold it Hold beta-nadeem and any antihypertensive since the patient is having GI bleed and may affect blood pressure. SCDs Maintain 2 IV bore cannulas PPI IV twice daily Keep hemoglobin above 7 g/dL Adequate hydration with Ringer lactate to continue Maintain MAP over 65 2. Anemia due to other cause, not classified: Anemia workup sent Rest of the plan as mentioned above 3. Sepsis: Patient having possible source of abdomen diverticulitis leading to leukocytosis that could also be related to stress versus anemia. 2 sets of blood cultures prelim negative Sent for urine cultures Lactate series improving Maintain 2 IV bore cannulas Broad-spectrum antibiotics coverage with metronidazole and ciprofloxacin IV fluid bolus and response to monitor Maintain MAP above 65 4. Diverticulitis: Ciprofloxacin and metronidazole Continue monitor for any bleeding per rectum or melena Keep hemoglobin above 7 Surgery on board and to follow the recommendation 5. Prerenal acute renal failure: Resolved after adequate hydration 6. Dehydration: Continue adequate hydration 7. Hyperlipidemia, unspecified hyperlipidemia type: Patient on 20 mg of simvastatin at home, to continue as inpatient 8. Essential hypertension: Hold any antihypertensive medication in the light of GI bleed in order to avoid any future hypotensive episodes 9. Bipolar disorder, in full remission, most recent episode mixed: Currently stable and continue to monitor Continue home medication alprazolam Plan: CODE STATUS: Full code GI prophylaxis: Protonix IVP 40mg BID VTE prophylaxis: SCDs PDMP PDMP Reviewed: Not Reviewed Attestations 2 Medical Necessity Statement*: Patient will stay more than 2 midnights for the management of diverticulitis with significant concerning anemia. And arrangement by the case packer and sealer for safe postdischarge arrangement Time Spent in Patient Care: 16 - 35 minutes (>than 50% of time sp ent in counselling and/or direct pt care on unit) . Other Attestations: Patient condition has been discussed at length with the patient/family, I have independently reviewed the chart labs imaging/diagnostics/EKG. the goals of care and code status with the patient/family/NOK/legal hostess party sales representative, and documented accordingly. The management has been done according to the current clinical condition with respect to patient goals of care and based on recommendations/guidelines. The patient/family has been informed about the current condition and further plan of care. Agreed with the plan of care and understood without any language barrier. Every effort was made to ensure accuracy of bag sewer. Any obvious errors or omissions should be clarified with the author of the document. Coding Level of Care Code 97242 Diagnoses Gastrointestinal hemorrhage associated with intestinal diverticulitis K57.93 GI bleed type/associated pathology: diverticulitis Anemia due to other cause, not classified D64.89 Anemia type: other cause Other causes of anemia: other cause, not classified Sepsis A41.9 Sepsis type: sepsis due to unspecified organism Severe sepsis acute organ dysfunction type: acute renal failure Acute renal failure type: unspecified Severe sepsis shock status: without septic shock Diverticulitis K57.92 Prerenal acute renal failure N17.9 Dehydration E86.0 Hyperlipidemia, unspecified hyperlipidemia type E78.5 Hyperlipidemia type: unspecified Essential hypertension I10 Hypertension type: essential hypertension Bipolar disorder, in full remission, most recent episode mixed F31.78 Active/Remission status: in full remission Most recent bipolar episode type: mixed
[2025-05-19 18:02] LABS: Ferritin 34 ng/mL (30-400); Iron 41 ug/dL (59-158); Total Iron Binding Capacity 319 mcg/dl; Unsaturated Iron Binding 278 ug/dL (112-347); Vitamin B12 294 pg/mL (232-1245)
[2025-05-19 21:01] LABS: Hematocrit 24.5 % (37-53); Hemoglobin 7.80 g/dL (11.27-16.99); Mean Corpuscular HGB Conc 31.8 g/dL (30-55); Mean Corpuscular Hemoglobin 30.4 pg (27-33); Mean Corpuscular Volume 95.3 fl (82-101); Nucleated Red Blood Cells % 0.3 %; Platelet Count 196 10^3/cmm (157-399); Red Blood Count 2.57 10^6/uL (3.85-5.65); White Blood Count 13.56 10^3/uL (3.29-11.43)
[2025-05-20] VITALS (10 sets, daily range): BP systolic 106–128; BP diastolic 50–76; PULSE 66–82; RESP 16–18; TEMP 36.5–36.8; O2SAT 90–100
[2025-05-20 00:23] LABS: Hematocrit 23.9 % (37-53); Hemoglobin 8.00 g/dL (11.27-16.99); Mean Corpuscular HGB Conc 33.5 g/dL (30-55); Mean Corpuscular Hemoglobin 30.5 pg (27-33); Mean Corpuscular Volume 91.2 fl (82-101); Nucleated Red Blood Cells % 0.2 %; Platelet Count 196 10^3/cmm (157-399); Red Blood Count 2.62 10^6/uL (3.85-5.65); White Blood Count 12.26 10^3/uL (3.29-11.43)
[2025-05-20] MEDS: sennosides-docusate Tablet 2 TAB PO ×2 (04:42→16:11)
[2025-05-20] MEDS: ATORVASTATIN 20 MG TABLET PO (04:42)
[2025-05-20] MEDS: metroNIDAZOLE IV 500 MG/100 ML PREMIX 100 MG IV ×3 (04:42→21:14)
[2025-05-20] MEDS: lactobacillus 1 Tablet 1 TAB PO ×2 (04:42→16:11)
--- NOTE | 2025-05-20 05:47 | P.HPUD_ITS ---
Surgery/Procedure H&P Update DATE OF PROCEDURE: May 20, 2025 DATE H&P PERFORMED: 05/19/25 H&P UPDATE INFORMATION: I have reviewed H&P completed within last 30 days, I have examined patient prior to procedure, No changes to prior documentation, H&P is in [facility] EMR on date indicated and Risks and benefits of the procedure reviewed PLANNED PROCEDURE: Operation Date: 05/20/25 07:00 Proposed Procedures p EGD WITH POSSILE BLEEDING CONTROL(Not Applicable) - Gino Richardson MD
[2025-05-20 05:54] LABS: Anion Gap 11.5 (5-19); Blood Urea Nitrogen 17 mg/dL (8-23); Calcium 7.4 mg/dL (8.5-10.5); Carbon Dioxide 23 mmol/L (22-29); Chloride 108 mmol/L (98-107); Creatinine Clr Calc Pharmacy 86.6575; Glucose 108 mg/dL (65-115); Osmolality Calculated 290 mOsm/kg (285-295); Potassium 3.5 mmol/L (3.5-5.1); Sodium 139 mmol/L (136-145)
--- NOTE | 2025-05-20 06:54 | P.ANESASSM_ITS ---
Pre-Anesthetic Assessment Height/Weight: Height 1.8 m Weight 95.028 kg Temp Pulse Resp BP Pulse Ox O2 Del Method 98.2 F 66 18 110/76 94 Room Air 05/20/25 03:18 05/20/25 03:18 05/20/25 03:18 05/20/25 03:18 05/20/25 03:18 05/20/25 03:18 Preop Diagnosis: Anemia, hematemesis Operation Date: 05/20/25 07:00 Proposed Procedures p EGD WITH POSSILE BLEEDING CONTROL(Not Applicable) - Gino Richardson MD Familial anesthetic complications: none Was Beta Abhishek taken within 24 hours: Yes Was Clonidine taken within 24 hours: N/A Last intake: Intake Last Liquid Date 05/20/25 Last Liquid Time 00:00 Last Solid Date 05/19/25 Last Solid Time 17:00 Social No alcohol and No tobacco Exam alert, oriented x 3, clear to auscultation bilaterally (diminished tones) and regular rate & rhythm (diminished tones) Airway Cervical ROM: within normal limits Mallampati: Class III Dentition: chipped Pulmonary None reported CV/HEM Coronary Artery Disease, Hypertension and Myocardial Infarction (stent circumflex, LAD) Chronic Renal Insufficiency Hepatic None reported GI Gastroesophageal Reflux Disease Metabolic Hyperlipidemia and Morbid Obesity [facility] None reported Neuropsych Bipolar Anesthetic Plan ASA status: 3 Anesthesia: MAC Risk of > 500 ml blood loss (7ml/kg in children): No Medications/Allergies Home Medications ?Medication ?Instructions ?Recorded ?Confirmed ?Last Taken ?Type aspirin 81 mg tablet,delayed 81 mg PO DAILY 11/23/22 1 07/19/24 05/17/25 History release (Adult Low Dose Aspirin) coenzyme Q10 100 mg capsule (Co 100 mg PO DAILY 05/18/25 Unknown History Q-10) alprazolam 0.25 mg tablet 0.5 mg (2 x 0.25 mg) PO SPARKLE Y 90 04/03/24 05/18/25 Unknown Rx days #180 tabs amlodipine 5 mg tablet See Rx Instructions .Route 0 12/29/24 05/18/25 05/17/25 Rx .COMPLEX #100 tabs clopidogrel 75 mg tablet 75 mg PO DAILY #90 tabs 12/1605/18/25 05/17/25 Rx metoprolol tartrate 25 mg tablet 25 mg PO BID #200 tab s 12/29/24 05/18/25 05/17/25 08:00 Rx simvastatin 20 mg tablet 20 mg PO DAILY #90 tabs 12/1605/18/25 05/17/25 09:00 Rx [id number] 300 mcg-K 60 1 tab PO DAILY 05/18/25 05/18/25 05/17/25 History mcg-lycop 600 mcg-lutein 300 mcg tablet (Centrum Silver Men) Allergies Allergy/AdvReac Type Severity Reaction Status Date / Time No Known Allergies Allergy Verified 11/06/24 13:36 Current Medications Generic Name Dose Route Start Last Admin Trade Name Freq PRN Reason Stop Dose Admin Alprazolam 0.5 mg 05/18/25 21:00 05/19/25 21:50 Alprazolam 0.25 Mg Tablet PO 0.5 mg On Hold: 05/20/25 06:41 BEDTIME JAMAAL Administration Comment: Order held by Process Transfer Amlodipine Besylate 5 mg 05/19/25 05:00 05/19/25 04:20 Amlodipine 5 Mg Tablet PO 5 mg DAILY JAMAAL Administration Atorvastatin Calcium 20 mg 05/20/25 05:00 05/20/25 04:42 Atorvastatin 20 Mg Tablet PO 20 mg On Hold: 05/20/25 06:41 DAILY JAMAAL Administration Comment: Order held by Process Transfer Lactated Ringer's 1,000 mls @ 100 mls/hr 05/18/25 17:00 05/19/25 21:51 Lactated Ringers IV 100 mls/hr On Hold: 05/20/25 06:41 .Q10H JAMAAL Administration Comment: Order held by Process Transfer Metronidazole 500 mg in 100 mls @ 100 mls/hr 05/19/25 13:00 05/20/25 04:42 Flagyl Iv IV 100 mls/hr On Hold: 05/20/25 06:41 Q8H JAMAAL Administration Comment: Order held by Process Protocol Transfer Ciprofloxacin/Dextrose 400 mg in 200 mls @ 200 mls/hr 05/19/25 13:00 05/20/25 01:26 Cipro IV Infused On Hold: 05/20/25 06:41 Q12H JAMAAL Infusion Comment: Order held by Process Protocol Transfer Lactobacillus Acidophilus 1 tab 05/18/25 17:00 05/20/25 04:42 Lactobacillus 1 Tablet PO 1 tab On Hold: 05/20/25 06:41 BID JAMAAL Administration Comment: Order held by Process Transfer Metoprolol Tartrate 25 mg 05/18/25 17:15 05/19/25 04:21 Metoprolol Tartrate 25 Mg Tablet PO 25 mg BID JAMAAL Administration Pantoprazole Sodium 40 mg 05/19/25 15:00 05/19/25 14:43 Pantoprazole 40 Mg Sdv IVP 40 mg On Hold: 05/20/25 06:41 Q24H JAMAAL Administration Comment: Order held by Process Transfer Polyethylene Glycol 17 gm 05/19/25 05:00 05/20/25 04:42 Polyethylene Glycol 3350 Pkt 17 Gm PO Not Given On Hold: 05/20/25 06:41 DAILY JAMAAL Comment: Order held by Process Transfer Senna/Docusate Sodium 2 tab 05/19/25 05:00 05/20/25 04:42 Sennosides-Docusate Tablet PO 2 tab On Hold: 05/20/25 06:41 BID JAMAAL Administration Comment: Order held by Process Transfer [facility] Anesthesia Medical History (Updated 05/19/25 @ 15:56 by Alek Sow MD) Coronary artery disease HTN (hypertension) Hyperlipidemia Surgical History Hx of hernia repair History of coronary artery stent placement 2011 Family History Family/Other Cancer Aunt Denies family history of Diabetes CAD (coronary artery disease) Stroke Social History Smoking and tobacco/nicotine status: never used tobacco/nicotine Alcohol intake: never Substance/Drug Use: never Data Anesthesia 05/20/25 00:05 05/20/25 05:05 Short CBC 05/18/25 05/19/25 05/19/25 Range/Units 11:55 05:36 11:27 WBC 27.01 H 13.55 H 15.44 H (3.29-11.43) 10^3/uL Hgb 9.20 L 6.10 L* D 7.00 L (11.27-16.99) g/dL Hct 29.1 L 20.1 L* D 22.1 L (37-53) % MCV 97.0 100.5 94.8 D (82-101) fl Plt Count 397 222 D 218 (157-399) 10^3/cmm Neut % (Auto) 86.5 76.8 77.3 % Neut # (Auto) 23.36 H 10.41 H 11.94 H (1.8-7.7) 10^3/uL 05/19/25 05/20/25 Range/Units 20:47 00:05 WBC 13.56 H 12.26 H (3.29-11.43) 10^3/uL Hgb 7.80 L 8.00 L (11.27-16.99) g/dL Hct 24.5 L 23.9 L (37-53) % MCV 95.3 91.2 (82-101) fl Plt Count 196 196 (157-399) 10^3/cmm Neut % (Auto) 71.8 70.4 % Neut # (Auto) 9.72 H 8.64 H (1.8-7.7) 10^3/uL BMP 05/18/25 05/19/25 05/20/25 11:55 05:36 05:05 Sodium 143 143 139 Potassium 4.3 3.9 3.5 Chloride 107 112 H 108 H Carbon Dioxide 19 L 20 L 23 BUN 49 H 29 H 17 Creatinine 1.3 H 1.0 0.7 Glucose 112 105 108 Calcium 8.6 7.2 L 7.4 L Cardiac Enzymes 05/18/25 05/18/25 05/18/25 Range/Units 11:55 13:54 17:37 Troponin T Baseline 28 H (0-15) ng/L Troponin T 120 Minute 28.47 H (0-15) ng/L Delta Troponin T 0.47 (0-10) ABS# Troponin T Hi Sens 6Hr 29.96 H (0-15) ng/L Troponin T Hi Sens 6Hr Delta 1.96 (0-12) ng/L Liver Function 05/18/25 05/18/25 Range/Units 11:55 13:54 Total Bilirubin 0.3 0.2 (0.15-1.2) mg/dL Direct Bilirubin 0.09 (0.00-0.30) mg/dL AST 24 23 (0-40) U/L ALT 21 18 (0-41) U/L Alkaline Phosphatase 76 63 (40-130) U/L Albumin 3.7 3.2 L (3.5-5.2) g/dL Urine 05/18/25 Range/Units 13:12 Urine Color Yellow (Yellow) Urine Appearance Clear (CLEAR) Urine pH 6.5 (5-7) Ur Specific [place] 1.022 (1.005-1.030) Urine Protein Negative (Negative) Urine Glucose (UA) Negative (Normal) Urine Ketones Trace (Negative) Urine Nitrate Negative (Negative) Urine Bilirubin Negative (Negative) Ur Leukocyte Esterase Trace A (Negative) Urine RBC 0-2 (0-2) /hpf Urine WBC 0-5 (0-5) /hpf Blood Bank 05/19/25 06:31 Blood Type O Positive Rho(D) Type Rh positive Antibody Screen Negative COVID Results 05/18/25 11:55 SARS-CoV-2 (PCR) Negative Coags 05/18/25 11:55 C-Reactive Protein 6.5 H Microbiology 05/18/25 11:55 Blood Culture - Preliminary Blood NEGATIVE TO DATE 05/18/25 11:50 Blood Culture - Preliminary Blood NEGATIVE TO DATE Cardiac Studies: 2 Sestamibi Stress Test (Cardiology) 02/28
--- NOTE | 2025-05-20 07:12 | P.PN_ITS ---
Subjective 2 Subjective: 79-year-old male who is admitted with we akness and suspected upper GI bleeding. Doing well overnight, hemoglobin has trended up to 8 after transfusion. Vitals/I&O/Wt Last Vital Signs Temp 98.2 F 05/20/25 03:18 Pulse 66 05/20/25 03:18 Resp 18 05/20/25 03:18 BP 110/76 05/20/25 03:18 Pulse Ox 94 05/20/25 03:18 O2 Del Method Room Air 05/20/25 03:18 05/19/25 05/20/25 05/20/25 22:59 06:59 14:59 Intake Total 2075 / 5025 300 / 5325 Output Total 650 / 650 Balance 2075 / 5025 -350 / 4675 Weight last 48 hrs Weight 209 lb 8 oz Weight 205 lb Weight 195 lb Weight 180 lb Physical Exam 2 GI: OTHER: The abdomen is soft nontender nondistended Data 05/20/25 00:05 05/20/25 05:05 Micro: Microbiology 05/18/25 11:55 Blood Culture - Preliminary Blood NEGATIVE TO DATE 05/18/25 11:50 Blood Culture - Preliminary Blood NEGATIVE TO DATE A&P Assessment and plan 1. Upper GI bleed: Plan: EGD was done today, there is mild gastritis, there is a large cratered duodenal ulcer at the level of the first portion of the duodenum, there is a stigmata of bleeding no active bleeding. Biopsies were taken. Patient should continue high-dose PPI should be initiated on Carafate 4 times a day, we should avoid NSAID as much as possible. He should repeat an endoscopy in 4 to 6 weeks to ensure recovery. PDMP PDMP Reviewed: Not Reviewed Attestations 2 Medical Necessity Statement*: Per medical team Coding Level of Care Code Acute Code for Chg Fwd Diagnoses Upper GI bleed K92.2
--- NOTE | 2025-05-20 07:35 | ANE.PACU2 ---
Inpatient post-anesthesia follow up: Airway intact: Yes Vital signs: Temperature 98 F Pulse Rate 82 Respiratory Rate 18 Blood Pressure 123/63 Pulse Oximetry 93 Oxygen Delivery Me thod Room Air Oxygen Flow Rate Fraction of Inspir ed Oxygen Hydration adequate: Yes Nausea and vomiting: No Pain level: 1 Mental status: Baseline
[2025-05-20 10:54] LABS: Lactate (Lactic Acid level) 1.6 mmol/L (0.5-2.2)
[2025-05-20] MEDS: sucralfate 1 gm/10 mL Oral Liq UDC PO ×3 (12:15→21:20)
--- NOTE | 2025-05-20 12:43 | P.PN_ITS ---
Subjective 2 Subjective: 79-year-old male who is admitted with we akness and suspected upper GI bleeding. Doing well overnight, hemoglobin has trended up to 8 after transfusion. 05/20 patient seen and examined, status p ost upper GI endoscopy. Told him about the duodenal ulceration. He is currently denying any abdominal pain nausea vomiting chest pain or any other symptoms. Vitals/I&O/Wt Last Vital Signs Temp 98 F 05/20/25 11:50 Pulse 70 05/20/25 11:50 Resp 18 05/20/25 11:50 BP 106/61 05/20/25 11:50 Pulse Ox 93 05/20/25 11:50 O2 Del Method Room Air 05/20/25 08:45 05/19/25 05/20/25 05/20/25 22:59 06:59 14:59 Intake Total 2075 / 5025 300 / 5325 2099 / 2100 Output Total 650 / 650 Balance 2075 / 5025 -350 / 4675 2099 / 2099 Weight last 48 hrs Weight 95.028 kg Weight 92.986 kg Weight 88.451 kg Physical Exam 2 Narrative: General: Alert and oriented, lying comfortably without any distress, pallor positive HEENT: Normocephalic, atraumatic, grossly unremarkable exam Cardio: normal rate rhythm, normal S1-S2 without any murmurs, rubs, or gallops and JVD normal Respiratory: normal vascular breathing on auscultation without any wheezes, stridor, rhonchi GI: Abdomen soft, nontender, nondistended, normoactive bowel sounds present all 4 quadrants, Neuro: intact cranial nerves motor and sensory and cerebellar/coordination function without any focal neurological deficit Behavior: Appropriate and cooperative Extremities: Adequate palpable pulses, mild trace edema, pallor positive Data 05/20/25 00:05 05/20/25 05:05 Micro: Microbiology 05/18/25 11:55 Blood Culture - Preliminary Blood NEGATIVE TO DATE 05/18/25 11:50 Blood Culture - Preliminary Blood NEGATIVE TO DATE A&P Assessment and plan 1. Gastrointestinal hemorrhage associated with intestinal diverticulitis: Patient having features of diverticulitis on CT CT scan of the abdomen and pelvis Patient initially started on linezolid and meropenem by the admitting APRN, switched to metronidazole and ciprofloxacin Leukocytosis improving Advance diet as tolerated Anemia and possible GI bleed. Surgery consulted S/p upper GI endoscopy EGD showed mild gastritis, there is a large cratered duodenal ulcer at the level of the first portion of the duodenum, there is a stigmata of bleeding no active bleeding. Biopsies were taken. Surgery recommending repeat endoscopy in 4 to 6 weeks Hold anticoagulation or any blood thinners, of note patient is on aspirin and Plavix and currently on hold Will discuss with surgery about resumption of the same and timing Initially beta-nadeem and antihypertensives were held secondary to GI bleed however currently blood pressure is soft, continue holding. SCDs PPI IV twice daily Sucralfate 4 times daily Hemoglobin stable, 8.0 today. 2. Anemia due to other cause, not classified: as above 3. Sepsis: Patient having possible source of abdomen diverticulitis leading to leukocytosis that could also be related to stress versus anemia. 2 sets of blood cultures prelim negative Sent for urine cultures Lactic acidosis has resolved Maintain 2 IV bore cannulas Broad-spectrum antibiotics coverage with metronidazole and ciprofloxacin IV fluid bolus and response to monitor Maintain MAP above 65 4. Diverticulitis: Ciprofloxacin and metronidazole Continue monitor for any bleeding per rectum or melena Keep hemoglobin above 7 Surgery on board and to follow the recommendation 5. Prerenal acute renal failure: Resolved after adequate hydration 6. Dehydration: Continue adequate hydration 7. Hyperlipidemia, unspecified hyperlipidemia type: Patient on 20 mg of simvastatin at home, to continue as inpatient 8. Essential hypertension: Hold any antihypertensive medication in the light of GI bleed in order to avoid any future hypotensive episodes 9. Bipolar disorder, in full remission, most recent episode mixed: Currently stable and continue to monitor Continue home medication alprazolam 10. Electrolyte abnormality: Replete hypokalemia and hypophosphatemia. Recheck tomorrow. Plan: CODE STATUS: Full code GI prophylaxis: Protonix IVP 40mg BID VTE prophylaxis: SCDs PDMP PDMP Reviewed: Not Reviewed Attestations 2 Medical Necessity Statement*: Repeating electrolytes. Will discuss with surgery about resumption of blood thinners. PT OT Coding Level of Care Code Acute Code for Chg Fwd Diagnoses Gastrointestinal hemorrhage associated with intestinal diverticulitis K57.93 GI bleed type/associated pathology: diverticulitis Anemia due to other cause, not classified D64.89 Anemia type: other cause Other causes of anemia: other cause, not classified Sepsis A41.9 Acute renal failure type: unspecified Sepsis type: sepsis due to unspecified organism Severe sepsis acute organ dysfunction type: acute renal failure Severe sepsis shock status: without septic shock Diverticulitis K57.92 Prerenal acute renal failure N17.9 Dehydration E86.0 Hyperlipidemia, unspecified hyperlipidemia type E78.5 Hyperlipidemia type: unspecified Essential hypertension I10 Hypertension type: essential hypertension Bipolar disorder, in full remission, most recent episode mixed F31.78 Active/Remission status: in full remission Most recent bipolar episode type: mixed Electrolyte abnormality E87.8
[2025-05-20] MEDS: pantoprazole 40 mg SDV IVP (16:11)
--- NOTE | 2025-05-20 16:14 | PC.NURSE ---
pt had only had 125mls urine output, pt bladder scan was approx 460, dr. fallon notified and verbal order for straight cath received. educ pt of the order and pt requsted to wait. pt then had an additional 225 urine output and 2nd bladder scan was approx 380mls.
--- NOTE | 2025-05-20 16:24 | PC.SOCIAL ---
*IMM* Patient received a copy of the Important Message from Medicare. Copy in chart initialed and dated.
[2025-05-21] VITALS (9 sets, daily range): BP systolic 128–145; BP diastolic 55–68; PULSE 76–95; RESP 16–18; TEMP 36.6–37; O2SAT 90–97
[2025-05-21] MEDS: metroNIDAZOLE IV 500 MG/100 ML PREMIX 100 MG IV ×2 (05:09→13:45)
[2025-05-21] MEDS: lactobacillus 1 Tablet 1 TAB PO ×2 (05:14→16:43)
[2025-05-21] MEDS: ATORVASTATIN 20 MG TABLET PO (05:15)
--- NOTE | 2025-05-21 05:25 | PC.NURSE ---
Pt refused scheduled sennasides and miralax per AUG this morning as well. Dr. James notified, education provided regarding importance of taking meds.
[2025-05-21 05:58] LABS: Hematocrit 25.0 % (37-53); Hemoglobin 8.10 g/dL (11.27-16.99); Mean Corpuscular HGB Conc 32.4 g/dL (30-55); Mean Corpuscular Hemoglobin 31.2 pg (27-33); Mean Corpuscular Volume 96.2 fl (82-101); Nucleated Red Blood Cells % 0 %; Platelet Count 207 10^3/cmm (157-399); Red Blood Count 2.60 10^6/uL (3.85-5.65); White Blood Count 11.35 10^3/uL (3.29-11.43)
[2025-05-21 06:16] LABS: Anion Gap 12.7 (5-19); Blood Urea Nitrogen 13 mg/dL (8-23); Calcium 7.6 mg/dL (8.5-10.5); Carbon Dioxide 22 mmol/L (22-29); Chloride 109 mmol/L (98-107); Glucose 123 mg/dL (65-115); Osmolality Calculated 291 mOsm/kg (285-295); Potassium 3.7 mmol/L (3.5-5.1); Sodium 140 mmol/L (136-145)
[2025-05-21] MEDS: sucralfate 1 gm/10 mL Oral Liq UDC PO ×4 (06:18→20:56)
[2025-05-21 11:11] LABS: C.Diff PCR (Lab) NEGATIVE (Negative)
--- NOTE | 2025-05-21 12:51 | PM.PN ---
Subjective Subjective: 79-year-old male who is admitted with weakness and suspected upper GI bleeding. Doing well overnight, hemoglobin has trended up to 8 after transfusion. 05/20 patient seen and examined, status post upper GI endoscopy. Told him about the duodenal ulceration. He is currently denying any abdominal pain nausea vomiting chest pain or any other symptoms. Vitals/I&O/Wt Last Vital Signs Temp 98.2 F 05/21/25 11:27 Pulse 76 05/21/25 11:27 Resp 18 05/21/25 11:27 BP 129/60 05/21/25 11:27 Pulse Ox 93 05/21/25 11:27 O2 Del Method Room Air 05/21/25 11:27 05/20/25 05/21/25 05/21/25 22:59 06:59 14:59 Intake Total 600 / 3000 1400 / 4400 1000 / 1000 Output Total 325 / 450 200 / 200 Balance 275 / 2550 1400 / 3950 800 / 800 Weight last 48 hrs Weight 97.239 kg Weight 95.028 kg Physical Exam Narrative: General: Alert and oriented, lying comfortably without any distress, pallor positive HEENT: Normocephalic, atraumatic, grossly unremarkable exam Cardio: normal rate rhythm, normal S1-S2 without any murmurs, rubs, or gallops and JVD normal Respiratory: normal vascular breathing on auscultation without any wheezes, stridor, rhonchi GI: Abdomen soft, nontender, nondistended, normoactive bowel sounds present all 4 quadrants, Neuro: intact cranial nerves motor and sensory and cerebellar/coordination function without any focal neurological deficit Behavior: Appropriate and cooperative Extremities: Adequate palpable pulses, mild trace edema, pallor positive Data 05/21/25 05:27 05/21/25 05:27 Micro: Microbiology 05/20/25 03:45 Urine Culture - Preliminary Urine,Clean Catch A&P Assessment and plan 1. Gastrointestinal hemorrhage associated with intestinal diverticulitis: Patient having features of diverticulitis on CT scan of the abdomen and pelvis Patient initially started on linezolid and meropenem by the admitting JINRIKISHA DRIVER, switched to metronidazole and ciprofloxacin Leukocytosis improving Advance diet as tolerated Anemia and possible GI bleed. Surgery consulted S/p upper GI endoscopy EGD showed mild gastritis, there is a large cratered duodenal ulcer at the level of the first portion of the duodenum, there is a stigmata of bleeding no active bleeding. Biopsies were taken. Surgery recommending repeat endoscopy in 4 to 6 weeks Hold anticoagulation or any blood thinners, of note patient is on aspirin and Plavix and currently on hold Will discuss with surgery about resumption of the same and timing Initially beta-nadeem and antihypertensives were held secondary to GI bleed however currently blood pressure is soft, continue holding. SCDs PPI IV twice daily Sucralfate 4 times daily Hemoglobin stable, 8.1 today. 2. Anemia due to other cause, not classified: as above 3. Sepsis: Patient having possible source of abdomen diverticulitis leading to leukocytosis that could also be related to stress versus anemia. 2 sets of blood cultures prelim negative Sent for urine cultures Lactic acidosis has resolved Maintain 2 IV bore cannulas Broad-spectrum antibiotics coverage with metronidazole and ciprofloxacin 4. Diverticulitis: Ciprofloxacin and metronidazole Continue monitor for any bleeding per rectum or melena Keep hemoglobin above 7 Surgery on board and to follow the recommendation 5. Prerenal acute renal failure: Resolved after adequate hydration 6. Dehydration: Continue adequate hydration 7. Hyperlipidemia, unspecified hyperlipidemia type: Patient on 20 mg of simvastatin at home, to continue as inpatient 8. Essential hypertension: Hold any antihypertensive medication in the light of GI bleed in order to avoid any future hypotensive episodes 9. Bipolar disorder, in full remission, most recent episode mixed: Currently stable and continue to monitor Continue home medication alprazolam 10. Electrolyte abnormality: Replete hypokalemia and hypophosphatemia. Recheck tomorrow. Plan: CODE STATUS: Full code GI prophylaxis: Protonix IVP 40mg BID VTE prophylaxis: SCDs PDMP PDMP Reviewed: Not Reviewed Attestations Medical Necessity Statement*: Restarting aspirin and Plavix, monitor blood counts. Coding Level of Care Code Acute Code for [facility] Fwd Diagnoses Gastrointestinal hemorrhage associated with intestinal diverticulitis K57.93 GI bleed type/associated pathology: diverticulitis Anemia due to other cause, not classified D64.89 Anemia type: other cause Other causes of anemia: other cause, not classified Sepsis A41.9 Acute renal failure type: unspecified Sepsis type: sepsis due to unspecified organism Severe sepsis acute organ dysfunction type: acute renal failure Severe sepsis shock status: without septic shock Diverticulitis K57.92 Prerenal acute renal failure N17.9 Dehydration E86.0 Hyperlipidemia, unspecified hyperlipidemia type E78.5 Hyperlipidemia type: unspecified Essential hypertension I10 Hypertension type: essential hypertension Bipolar disorder, in full remission, most recent episode mixed F31.78 Active/Remission status: in full remission Most recent bipolar episode type: mixed Electrolyte abnormality E87.8
[2025-05-21] MEDS: pantoprazole 40 mg SDV IVP (14:47)
[2025-05-22] VITALS (8 sets, daily range): BP systolic 108–161; BP diastolic 62–68; PULSE 77–97; RESP 16–20; TEMP 36.4–37.2; O2SAT 92–96
[2025-05-22] MEDS: lactobacillus 1 Tablet 1 TAB PO ×2 (05:02→16:46)
[2025-05-22] MEDS: ATORVASTATIN 20 MG TABLET PO (05:02)
[2025-05-22 05:36] LABS: Hematocrit 25.2 % (37-53); Hemoglobin 8.00 g/dL (11.27-16.99); Mean Corpuscular HGB Conc 31.7 g/dL (30-55); Mean Corpuscular Hemoglobin 30.2 pg (27-33); Mean Corpuscular Volume 95.1 fl (82-101); Nucleated Red Blood Cells % 0 %; Platelet Count 207 10^3/cmm (157-399); Red Blood Count 2.65 10^6/uL (3.85-5.65); White Blood Count 8.77 10^3/uL (3.29-11.43)
[2025-05-22 06:00] LABS: Anion Gap 10.4 (5-19); Blood Urea Nitrogen 9 mg/dL (8-23); Calcium 7.7 mg/dL (8.5-10.5); Carbon Dioxide 24 mmol/L (22-29); Chloride 108 mmol/L (98-107); Glucose 146 mg/dL (65-115); Osmolality Calculated 289 mOsm/kg (285-295); Potassium 3.4 mmol/L (3.5-5.1); Sodium 139 mmol/L (136-145)
[2025-05-22] MEDS: sucralfate 1 gm/10 mL Oral Liq UDC PO ×3 (06:08→16:46)
--- NOTE | 2025-05-22 11:43 | PC.SOCIAL ---
IMM Updated Updated pt on IMM. No questions voiced. Provided pt a copy. Initialed, dated, & timed copy in chart.
--- NOTE | 2025-05-22 14:09 | PM.DCS ---
Discharge Providers Date of Admission: 05/18/25 15:21 Date of Discharge: May 22, 2025 Attending Provider at Admission: Tiffanie Young MD Attending Provider at Discharge: Margy Engle MD Primary Care Provider: Gal Wilson DO Diagnoses at Discharge Discharge Diagnosis 1. Gastrointestinal hemorrhage associated with intestinal diverticulitis: 2. Anemia due to other cause, not classified: 3. Sepsis: 4. Diverticulitis: 5. Prerenal acute renal failure: 6. Dehydration: 7. Hyperlipidemia, unspecified hyperlipidemia type: 8. Essential hypertension: 9. Bipolar disorder, in full remission, most recent episode mixed: 10. Electrolyte abnormality: Reason for Visit Reason for Visit: weakness Hospital Course Hospital Course Otf Yip is a 79 year old male w/ pmhx CAD (s/p multiple stent placement to LAD and circumflex 12/2013), on chronic anticoagulation- plavix, HTN, hyperlipidemia, and Bipolar disorder. Presented to the hospital with increased weakness. Found to have GI bleeding. 1. Gastrointestinal hemorrhage associated with intestinal diverticulitis: Patient having features of diverticulitis on CT scan of the abdomen and pelvis Patient initially started on linezolid and meropenem by the admitting [employer]ET[employer] REPRESENTATIVE, switched to metronidazole and ciprofloxacin Leukocytosis improving Advance diet as tolerated--tolerating diet okay. Will be discharged on p.o. Cipro and Flagyl. Prescription provided. Anemia and possible GI bleed. Surgery consulted S/p upper GI endoscopy EGD showed mild gastritis, there is a large cratered duodenal ulcer at the level of the first portion of the duodenum, there is a stigmata of bleeding no active bleeding. Biopsies were taken. Surgery recommending repeat endoscopy in 4 to 6 weeks Initially aspirin Plavix on hold however now having resumed and vital stable. Hemoglobin stable. Initially had soft blood pressures therefore blood pressure medications were on hold however now has been resumed. At the time of discharge. On PPI twice daily and sucralfate. Prescription provided. Will need to follow-up with surgery outpatient for repeat endoscopy in 4 to 6 weeks. 2. Anemia due to other cause, not classified: as above 3. Sepsis: Secondary to diverticulitis, resolved. 4. Diverticulitis: Ciprofloxacin and metronidazole 5. Prerenal acute renal failure: Resolved after adequate hydration 6. Dehydration: Continue adequate hydration 7. Hyperlipidemia, unspecified hyperlipidemia type: Patient on 20 mg of simvastatin at home, to continue as inpatient 8. Essential hypertension: Home blood pressure medications resumed. 9. Bipolar disorder, in full remission, most recent episode mixed: Currently stable and continue to monitor Continue home medication alprazolam 10. Electrolyte abnormalities repleted Physical Exam Narrative: General: Alert and oriented, lying comfortably without any distress, pallor positive HEENT: Normocephalic, atraumatic, grossly unremarkable exam Cardio: normal rate rhythm, normal S1-S2 without any murmurs, rubs, or gallops and JVD normal Respiratory: normal vascular breathing on auscultation without any wheezes, stridor, rhonchi GI: Abdomen soft, nontender, nondistended, normoactive bowel sounds present all 4 quadrants, Neuro: intact cranial nerves motor and sensory and cerebellar/coordination function without any focal neurological deficit Behavior: Appropriate and cooperative Extremities: Adequate palpable pulses, mild trace edema, pallor positive Discharge Data Studies Completed and Pending Completed Studies During Hospitalization Category Date Time Status CT chest abdomen pelvis [[place] [id number] Cat Scan 05/18/25 14:27 Completed ] Stat XR chest 1V portable [id number] Stat Exams 05/18/25 11:25 Completed Pending at discharge Category Date Time Status BMP [Basic Metabolic Panel] AM LABS Lab 05/23/25 04:00 Ordered Blood Culture Stat Lab 05/18/25 11:50 Results CBC Auto Diff [Complete Blood Count w/Auto] AM LABS Lab 05/23/25 04:00 Ordered Pathology: Surgical [PTH] Routine Pth 05/20/25 07:13 Received Radiology Impressions Chest X-Ray 05/18/25 11:25 IMPRESSION: 1. No acute cardiopulmonary finding. Chest/Abdomen/Pelvis CT 05/18/25 14:27 IMPRESSION: 1. No acute chest findings. 2. Slight thickening and induration about the sigmoid colon compatible with mild acute diverticulitis. No drainable abscess or fluid collection. 3. LEFT dorsal bladder diverticula measuring 2.2 x 2.8 cm 4. No other acute findings in the abdomen or pelvis. Laboratory Results WBC 8.77 10^3/uL (3.29-11.43) 05/22/25 05:22 RBC 2.65 10^6/uL (3.85-5.65) L 05/22/25 05:22 Hgb 8.00 g/dL (11.27-16.99) L 05/22/25 05:22 Hct 25.2 % (37-53) L 05/22/25 05:22 MCV 95.1 fl (82-101) 05/22/25 05:22 MCH 30.2 pg (27-33) 05/22/25 05:22 MCHC 31.7 g/dL (30-55) 05/22/25 05:22 RDW 15.5 % (12.1-15.1) H 05/22/25 05:22 Plt Count 207 10^3/cmm (157-399) 05/22/25 05:22 MPV 9.7 fL (7.4-10.4) 05/22/25 05:22 Neut % (Auto) 65.5 % 05/22/25 05:22 Lymph % (Auto) 18.7 % 05/22/25 05:22 Amite % (Auto) 6.0 % 05/22/25 05:22 Eos % (Auto) 8.3 % 05/22/25 05:22 Baso % (Auto) 1.0 % 05/22/25 05:22 Neut # (Auto) 5.74 10^3/uL (1.8-7.7) 05/22/25 05:22 Lymph # (Auto) 1.6 10^3/uL (0.8-4.8) 05/22/25 05:22 Amite # (Auto) 0.5 10^3/uL (0.2-0.9) 05/22/25 05:22 Eos # (Auto) 0.7 10^3/uL (0.0-0.8) 05/22/25 05:22 Baso # (Auto) 0.1 10^3/uL (0.0-0.1) 05/22/25 05:22 Nucleated RBC % (auto) 0 % 05/22/25 05:22 Nucleated RBCs # 0.0 /100WBC 05/22/25 05:22 Sodium 139 mmol/L (136-145) 05/22/25 05:22 Potassium 3.4 mmol/L (3.5-5.1) L 05/22/25 05:22 Chloride 108 mmol/L (98-107) H 05/22/25 05:22 Carbon Dioxide 24 mmol/L (22-29) 05/22/25 05:22 Anion Gap 10.4 (5-19) 05/22/25 05:22 BUN 9 mg/dL (8-23) 05/22/25 05:22 Creatinine 0.7 mg/dL (0.7-1.2) 05/22/25 05:22 GFR Calculation Not Reportable 05/22/25 05:22 Glucose 146 mg/dL (65-115) H 05/22/25 05:22 Estimat Average Glucose 97 05/18/25 11:55 Hemoglobin A1c 5.0 % (4.0-6.0) 05/18/25 11:55 Calculated Osmolality 289 mOsm/kg (285-295) 05/22/25 05:22 Lactic Acid 0.9 mmol/L (0.5-2.2) 05/19/25 05:36 Lactic Acid (Sepsis) 4.1 mmol/L (0.5-2.2) H* 05/18/25 14:51 Lactate 1.6 mmol/L (0.5-2.2) 05/20/25 10:25 Calcium 7.7 mg/dL (8.5-10.5) L 05/22/25 05:22 Phosphorus 2.3 mg/dL (2.5-4.5) L 05/22/25 05:22 Magnesium 2.0 mg/dL (1.7-2.3) 05/18/25 11:55 Iron 41 ug/dL (59-158) L 05/19/25 05:36 TIBC 319 mcg/dl 05/19/25 05:36 % Saturation 12.8 % (20-50) L 05/19/25 05:36 Unsat Iron Binding 278 ug/dL (112-347) 05/19/25 05:36 Ferritin 34 ng/mL (30-400) 05/19/25 05:36 Total Bilirubin 0.2 mg/dL (0.15-1.2) 05/18/25 13:54 Direct Bilirubin 0.09 mg/dL (0.00-0.30) 05/18/25 13:54 AST 23 U/L (0-40) 05/18/25 13:54 ALT 18 U/L (0-41) 05/18/25 13:54 Alkaline Phosphatase 63 U/L (40-130) 05/18/25 13:54 Troponin T Baseline 28 ng/L (0-15) H 05/18/25 11:55 Troponin T 120 Minute 28.47 ng/L (0-15) H 05/18/25 13:54 Delta Troponin T 0.47 ABS# (0-10) 05/18/25 13:54 Troponin T Hi Sens 6Hr 29.96 ng/L (0-15) H 05/18/25 17:37 Troponin T Hi Sens 6Hr Delta 1.96 ng/L (0-12) 05/18/25 17:37 C-Reactive Protein 6.5 mg/L (0.0-4.9) H 05/18/25 11:55 Total Protein 5.1 g/dL (6.6-8.7) L 05/18/25 13:54 Albumin 3.2 g/dL (3.5-5.2) L 05/18/25 13:54 Globulin 1.9 g/dL (1.3-4.6) 05/18/25 13:54 Vitamin B12 294 pg/mL (232-1245) 05/19/25 05:36 Folate 8.1 ng/mL (4.5-32.2) 05/19/25 05:36 Urine Color Yellow (Yellow) 05/18/25 13:12 Urine Appearance Clear (CLEAR) 05/18/25 13:12 Urine pH 6.5 (5-7) 05/18/25 13:12 Ur Specific Preston 1.022 (1.005-1.030) 05/18/25 13:12 Urine Protein Negative (Negative) 05/18/25 13:12 Urine Glucose (UA) Negative (Normal) 05/18/25 13:12 Urine Ketones Trace (Negative) 05/18/25 13:12 Urine Blood Negative (Negative) 05/18/25 13:12 Urine Nitrate Negative (Negative) 05/18/25 13:12 Urine Bilirubin Negative (Negative) 05/18/25 13:12 Urine Urobilinogen 1.0 mg/dL (Negative) 05/18/25 13:12 Ur Leukocyte Esterase Trace (Negative) A 05/18/25 13:12 Urine RBC 0-2 /hpf (0-2) 05/18/25 13:12 Urine WBC 0-5 /hpf (0-5) 05/18/25 13:12 Ur Squamous Epith Cells 0-5 /hpf (0-5) 05/18/25 13:12 Amorphous Sediment Not Reportable 05/18/25 13:12 Urine Bacteria None seen /hpf (NONE) 05/18/25 13:12 Hyaline Casts 15.71 /lpf 05/18/25 13:12 C. difficile (PCR) Negative (Negative) 05/21/25 08:45 Influenza A (PCR) Negative (Negative) 05/18/25 11:55 Influenza Type B (PCR) Negative (Negative) 05/18/25 11:55 RSV (PCR) Negative (Negative) 05/18/25 11:55 SARS-CoV-2 (PCR) Negative (Negative) 05/18/25 11:55 Blood Type O Positive 05/19/25 06:31 Rho(D) Type Rh positive 05/19/25 06:31 Antibody Screen Negative 05/19/25 06:31 Crossmatch See Detail 05/19/25 06:31 Vitals Last Vital Signs Temp 98.6 F 05/22/25 11:27 Pulse 86 05/22/25 11:27 Resp 18 05/22/25 11:27 BP 153/64 05/22/25 11:27 Pulse Ox 96 05/22/25 11:27 O2 Del Method Room Air 05/22/25 11:27 Discharge Plan Discharge Patient Disposition: Home Condition: Stable Prescriptions: New polyethylene glycol 3350 17 gram Powder In Packet 17 g PO DAILY Qty: 30 0RF sucralfate 100 mg/mL Suspension 1 g PO AC&BEDTIME Qty: 120 0RF polysaccharide iron complex [Ferrex 150] 150 mg iron Capsule 150 mg PO BIDWM Qty: 15 0RF metronidazole 500 mg Tablet 500 mg PO TID 7 Days Qty: 21 0RF ciprofloxacin HCl 500 mg Tablet 500 mg PO BID@0900,2100 7 Days Qty: 14 0RF Phospha 250 Neutral 250 mg Tablet 1 tab PO BID Qty: 15 0RF Lactobacillus acidoph-L.bulgar 1 million cell Tablet 1 tab PO BID Qty: 3 0RF Continued coenzyme Q10 [Co Q-10] 100 mg capsule 100 mg PO DAILY aspirin [Adult Low Dose Aspirin] 81 mg tablet,delayed release (DR/EC) 81 mg PO DAILY alprazolam 0.25 mg tablet 0.5 mg PO DAILY 90 Days Qty: 180 1RF Rx Instructions: Take 2 tablets daily clopidogrel 75 mg tablet 75 mg PO DAILY Qty: 90 3RF metoprolol tartrate 25 mg tablet 25 mg PO BID Qty: 200 3RF amlodipine 5 mg tablet See Rx Instructions .ROUTE .COMPLEX Qty: 100 3RF Dose Instruction: TAKE 1 TABLET BY MOUTH DAILY Rx Instructions: TAKE 1 TABLET BY MOUTH DAILY simvastatin 20 mg tablet 20 mg PO DAILY Qty: 90 3RF Centrum Silver Men [id number] mcg Tablet 1 tab PO DAILY Discharge Order = DC NOW: Discharge Order (Routine); Ordered 05/22/25 Ordered By: Margy Engle Other Ambulatory Orders: DME: Walker (Order) Location: None Selected Ordered By: Margy Engle [place] [facility] [place] [facility] [place] Gino Richardson MD [Physician, General Surgery] - 06/03/25 8:35 am Referral Note: Gal Wilson DO [Primary Care Provider] Referral Note: Please call the clinic, go online, or visit [facility] to schedule your appointment. Patient Instructions: Ciprofloxacin (By mouth), Sucralfate (By mouth), Metronidazole (By mouth) (Flagyl, Flagyl 375, Flagyl ER, Likmez), Polyethylene Glycol 3350 (By mouth), Phosphate Supplement (By mouth), GI Bleeding, Diverticulitis (DC), GI Post Discharge Instructions w/ Anesthesia, Opioid Safety, Pain Management, Patient Portal & Nolberto Instructions Discharge Attestations Time Spent in Discharge Care*: greater than 30 min Quality Metrics Clinical Quality Measures [ No reported AMI, CVA or VTE this stay] Coding Level of Care Code Acute Code for g Fwd Diagnoses Gastrointestinal hemorrhage associated with intestinal diverticulitis K57.93 GI bleed type/associated pathology: diverticulitis Anemia due to other cause, not classified D64.89 Anemia type: other cause Other causes of anemia: other cause, not classified Sepsis A41.9 Acute renal failure type: unspecified Sepsis type: sepsis due to unspecified organism Severe sepsis acute organ dysfunction type: acute renal failure Severe sepsis shock status: without septic shock Diverticulitis K57.92 Prerenal acute renal failure N17.9 Dehydration E86.0 Hyperlipidemia, unspecified hyperlipidemia type E78.5 Hyperlipidemia type: unspecified Essential hypertension I10 Hypertension type: essential hypertension Bipolar disorder, in full remission, most recent episode mixed F31.78 Active/Remission status: in full remission Most recent bipolar episode type: mixed Electrolyte abnormality E87.8
[2025-05-22] MEDS: sennosides-docusate Tablet 2 TAB PO (16:46)
== END 2025-05-22 09:30 | disposition home health service (06) | DRG 871 ==
LOC: ER 15:10 → ER IP 15:21 → MEDSURG 16:32
PROVIDERS: Clinical Nurse Specialist Acute Care; Student in an Organized Health Care Education/Training Program; Surgery; Admitting Provider Internal Medicine; Emergency Provider Emergency Medicine; PCP Family Medicine; Visit Provider Internal Medicine
PROC: 0DJ08ZZ Inspection of Upper Intestinal Tract, Via Natural or Artificial Opening Endoscopic (ICD-10-PCS; principal; 2025-05-20 07:00)
DX: A41.9 Sepsis, unspecified organism (principal); K25.4 Chronic or unspecified gastric ulcer with hemorrhage; K57.93 Diverticulitis of intestine, part unspecified, without perforation or abscess with bleeding; K29.71 Gastritis, unspecified, with bleeding; N17.9 Acute kidney failure, unspecified; D64.9 Anemia, unspecified; E86.0 Dehydration; E78.5 Hyperlipidemia, unspecified; I10 Essential (primary) hypertension; F31.70 Bipolar disorder, currently in remission, most recent episode unspecified; E87.8 Other disorders of electrolyte and fluid balance, not elsewhere classified; I25.10 Atherosclerotic heart disease of native coronary artery without angina pectoris; Z95.5 Presence of coronary angioplasty implant and graft; Z79.01 Long term (current) use of anticoagulants
CPT/HCPCS: 36415; 36430; 43239; 71045; 71250; 74176; 80048; 80053; 80076; 81001; 82607; 82728; 82746; 83036; 83540; 83550; 83605; 83735; 84100; 84484; 85025; 86140; 86850; 86900; 86920; 87040; 87086; 87493; 87637; 88305; 93005; 96365; 96375; 97110; 97116; 97162; 97166; 97530; 99285; J0744; J2020; J2185; J2405; J2470; J2704; J3010; J3490; J7030; J7040; J7120; J9999; P9016